=== PATIENT | male | born 1965 | race Caucasian/White ===

== ENCOUNTER 2024-08-02 14:50 | Inpatient (IN) ==
--- NOTE | 2024-08-02 15:08 | ED Triage Note ---
Date of Service August 02, 2024 Provider in Triage Author: Tila Brown History of Present Illness This patient was briefly evaluated while in triage. An abbreviated physical exam was performed. This patient is a 59-year-old Male who presents to the ED for evaluation lower extremity edema started 1 week ago sick with "chest cold" a few weeks, but getting better denies CP, SOB, hx of CHF Physical Exam GENERAL: NAD, tachycardic in 140s CARDIOVASCULAR: tachycardic RESPIRATORY: CTA ABDOMEN: BS x 4. Nontender to palpation. Initial orders for labs and / or imaging were placed and patient was placed in the waiting area until a bed is available. Please see further documentation for the full ED course.
--- NOTE | 2024-08-02 15:20 | Emergency Department Note ---
Impression & Plan Hypoxia, Anasarca, Fluid overload, Atrial flutter with rapid ventricular response, Shortness of breath ED Provider Note NAME: SAMIRA FLANNERY AGE: 59 SEX: M : 1965 ARRIVES VIA: Walk-In INFORMANT: Patient ED PROVIDER(S): Javi Kang DO CHIEF COMPLAINT: SOB HPI: Patient is a 59-year-old male who presents to the ER for shortness of breath. He notes that the symptoms initially started about 3 weeks ago with cough and congestion. He felt like the fluid was in his lungs. Over the past week he has noticed significant swelling in his legs and belly and has been more short of breath. He denies any belly pain. No nausea, vomiting, or diarrhea. No dysuria, urgency, or frequency. He denies any history of A-fib or flutter. No history of heart failure. No other exacerbating or remitting factors. ADDITIONAL HISTORY OBTAINED: Per HPI Chronic Medical/Social Conditions Affecting Care: Per HPI PAST MEDICAL HISTORY:See Below PAST SURGICAL HISTORY:See Below FAMILY HISTORY:See Below SOCIAL HISTORY:See Below HOME MEDICATIONS:See Below ALLERGIES:See Below VITALS:See Below PHYSICAL EXAMINATION: GENERAL: Sitting up in bed, alert, obese, disheveled EYE EXAM: normal conjunctiva. OROPHARYNX: no exudate, no erythema, lips, buccal mucosa, and tongue normal and mucous membranes are moist NECK: supple, no nuchal rigidity, no adenopathy, non-tender LUNGS: Clear to auscultation. Normal chest wall mechanics HEART: no murmurs, S1 normal and S2 normal ABDOMEN: abdomen soft, non-tender, normo-active bowel sounds, no masses, no rebound or guarding. BACK: Back is symmetrical on inspection and there is no deformity, no midline tenderness, no CVA tenderness. SKIN: no rashes and no bruising UPPER EXTREMITIES: upper extremities are grossly normal. LOWER EXTREMITIES: Pitting edema in the bilateral lower extremities tracking up and through the mid abdomen. Left calf is larger than right. NEURO EXAM: Normal sensorium, cranial nerves II-XII grossly intact, normal speech, no gross weakness of arms, no gross weakness of legs. MEDICAL DECISION MAKING: Patient is a 59-year-old male who presents to the ER for the above-stated complaint. Upon arrival he is found to be tachycardic with a heart rate in the 140s. He was hypoxic and was placed on 2 L nasal cannula at 87%. IV was established blood work was obtained. POC was obtained as his left calf was larger than right he was taken emergently to CT to rule out PE. CT angio chest showed no PEs. Did show pleural effusions as well as ascites. Following this patient was given IV Lopressor 5 mg and heart rate trended down to 110. Did suggest atrial flutter with RVR. Labs show no significant leukocytosis or anemia. INR unremarkable. BMP was fairly unremarkable. LFTs bilirubin were normal. Troponin was mildly elevated. TSH normal. UA clean. Patient was given IV Lasix. He was updated bedside. Discussed case with Dr. Gonzales for further evaluation management treatment. Consults/Care Managements Discussions: Per [facility] Triage Nursing notes reviewed. Limited review of prior medical records performed Vital Signs: reviewed and remarkable for hypertensive and tachycardic Differential diagnosis: Cardiac ischemia, aortic dissection, pulmonary embolism, pneumothorax, pneumonia, pericarditis, myocarditis, esophageal rupture, GERD, cholecystitis, pancreatitis, musculoskeletal, as well as other pathologies. ER treatment provided: See below Diagnostics interpreted by me include EKG and cardiac monitoring as listed below: -Cardiac Monitoring: An order was placed for continuous cardiac monitoring. The monitor shows a rate of 145 with atrial flutter rhythm. -ECG: Atrial flutter rate of [address] wave changes in the inferior and lateral leads QTc 416 EKG #2 Atrial flutter with a variable block rate of 109 Normal axis No PVCs Septal Q waves QTc 490 -Laboratory studies:Interpreted by me as stated above in MDM and shown below. Imaging studies: Xrays: As interpreted by me:none CTs show: CT angio the chest was negative for PE Procedures:none Critical Care: I have personally spent 45 minutes of critical care time in the direct management of this patient. This includes bedside care, interpretation of diagnostic studies, and testing, discussion with consultants, patient, and family members, and other required patient management activities. This 45 minutes is in excess of all separately billable procedures. Past Med/Surg History Problem List (Updated 08/02/24 @ 21:52 by Javi Kang DO) Shortness of breath (Acute) Atrial flutter with rapid ventricular response (Acute) Anasarca (Acute) Hypoxia (Acute) Atrial flutter Fluid overload (Acute) Medical History (Updated 08/02/24 @ 21:52 by Javi Kang DO) No pertinent past medical history Surgical History (Updated 05/29/23 @ 17:34 by Johnathan Law PA-C) History of hernia surgery History of surgery on arm Social History Smoking Status: Former smoker Preferred Language: Barbadian Feels Safe at Home: Yes Allergies Allergies Allergy/AdvReac Type Severity Reaction Status Date / Time No Known Allergies Allergy Unverified 09/24/15 10:25 Home Meds Home Medications Medication Instructions Recorded Confirmed No Known Home Medications 08/02/24 08/02/24 Results & Data (ED) Vital Signs Vital Signs - 24 hr 08/02/24 15:05 08/02/24 15:56 08/02/24 15:56 Temperature 36.4 C L Temperature Source Temporal Artery Scan Pulse Rate 147 H 145 H Pulse Rate [Right Finger] 144 H Pulse Rate from SpO2 Sensor Pulse Rhythm Regular Regular Pulse Rhythm [Right Finger] Regular Pulse Strength [Right Finger] Normal Respiratory Rate 20 34 H 34 H Respiratory Effort / Characteristics Non-Labored Spontaneous Non-Labored Respiratory Depth Normal Normal Respiratory Pattern Regular Regular Blood Pressure 161/137 H Blood Pressure [Right Arm] 176/129 H Blood Pressure Mean 145 Blood Pressure Mean [Right Arm] 144 Blood Pressure Position Sitting Blood Pressure Position [Right Arm] Lying Pulse Oximetry 92 89 L 89 L Oxygen Delivery Method Room Air Room Air Room Air Oxygen Flow Rate Sepsis Recent Fever Within 48 Hours No Sepsis New/Unexplained Change in Mental Status No Sepsis Action Taken by Nursing No Action Required 08/02/24 16:02 08/02/24 16:49 08/02/24 17:07 Temperature Temperature Source Pulse Rate 145 H 144 H Pulse Rate [Right Finger] 113 H Pulse Rate from SpO2 Sensor Pulse Rhythm Pulse Rhythm [Right Finger] Regular Pulse Strength [Right Finger] Normal Respiratory Rate 31 H Respiratory Effort / Characteristics Non-Labored Respiratory Depth Normal Respiratory Pattern Regular Blood Pressure 159/120 H Blood Pressure [Right Arm] 146/109 H Blood Pressure Mean Blood Pressure Mean [Right Arm] 121 Blood Pressure Position Blood Pressure Position [Right Arm] Lying Pulse Oximetry 94 Oxygen Delivery Method Nasal Cannula Oxygen Flow Rate 2 Sepsis Recent Fever Within 48 Hours Sepsis New/Unexplained Change in Mental Status Sepsis Action Taken by Nursing 08/02/24 18:45 08/02/24 18:51 08/02/24 19:00 Temperature Temperature Source Pulse Rate 144 H 144 H Pulse Rate [Right Finger] Pulse Rate from SpO2 Sensor 144 H 145 H Pulse Rhythm Pulse Rhythm [Right Finger] Pulse Strength [Right Finger] Respiratory Rate 26 H 32 H Respiratory Effort / Characteristics Non-Labored Respiratory Depth Normal Respiratory Pattern Blood Pressure Blood Pressure [Right Arm] Blood Pressure Mean Blood Pressure Mean [Right Arm] Blood Pressure Position Blood Pressure Position [Right Arm] Pulse Oximetry 94 95 Oxygen Delivery Method Oxygen Flow Rate Sepsis Recent Fever Within 48 Hours Sepsis New/Unexplained Change in Mental Status Sepsis Action Taken by Nursing 08/02/24 19:06 08/02/24 19:06 08/02/24 19:15 Temperature Temperature Source Pulse Rate 145 H 103 H Pulse Rate [Right Finger] Pulse Rate from SpO2 Sensor 140 H 103 H Pulse Rhythm Pulse Rhythm [Right Finger] Pulse Strength [Right Finger] Respiratory Rate 35 H 28 H Respiratory Effort / Characteristics Respiratory Depth Respiratory Pattern Blood Pressure 153/119 H Blood Pressure [Right Arm] Blood Pressure Mean 123 Blood Pressure Mean [Right Arm] Blood Pressure Position Blood Pressure Position [Right Arm] Pulse Oximetry 90 95 Oxygen Delivery Method Oxygen Flow Rate Sepsis Recent Fever Within 48 Hours Sepsis New/Unexplained Change in Mental Status Sepsis Action Taken by Nursing 08/02/24 19:20 08/02/24 19:44 08/02/24 20:02 Temperature Temperature Source Pulse Rate 144 H 95 H 108 H Pulse Rate [Right Finger] Pulse Rate from SpO2 Sensor Pulse Rhythm Pulse Rhythm [Right Finger] Pulse Strength [Right Finger] Respiratory Rate Respiratory Effort / Characteristics Respiratory Depth Respiratory Pattern Blood Pressure 153/119 H Blood Pressure [Right Arm] Blood Pressure Mean Blood Pressure Mean [Right Arm] Blood Pressure Position Blood Pressure Position [Right Arm] Pulse Oximetry Oxygen Delivery Method Oxygen Flow Rate Sepsis Recent Fever Within 48 Hours Sepsis New/Unexplained Change in Mental Status Sepsis Action Taken by Nursing 08/02/24 21:25 Temperature Temperature Source Pulse Rate 103 H Pulse Rate [Right Finger] Pulse Rate from SpO2 Sensor Pulse Rhythm Pulse Rhythm [Right Finger] Pulse Strength [Right Finger] Respiratory Rate 22 Respiratory Effort / Characteristics Respiratory Depth Respiratory Pattern Blood Pressure 130/100 Blood Pressure [Right Arm] Blood Pressure Mean Blood Pressure Mean [Right Arm] Blood Pressure Position Blood Pressure Position [Right Arm] Pulse Oximetry 94 Oxygen Delivery Method Nasal Cannula Oxygen Flow Rate 2 Sepsis Recent Fever Within 48 Hours Sepsis New/Unexplained Change in Mental Status Sepsis Action Taken by Nursing Laboratory Data 08/02/24 15:44 08/02/24 15:44 Lab Results 08/02/24 08/02/24 08/02/24 Range/Units 15:44 15:54 17:30 WBC 7.43 (4.8-10.8) K/ul RBC 5.25 (4.70-6.10) M/uL Hgb 15.1 (14.0-18.0) g/dl POC Hgb 16.7 (14.0-18.0) g/dl Hct 48.9 (42.0-52.0) % POC Hct 49 (42-52) % MCV 93.1 (80.0-100.0) fL MCH 28.8 (25.0-34.0) pg MCHC 30.9 L (32.0-36.0) g/dL RDW Std Deviation 53.2 H (36.4-46.3) fL RDW Coeff of Holly 15.6 H (11.5-14.5) % Plt Count 212 (130-400) K/uL MPV 11.3 (9.4-12.4) fL Immature Gran % (Auto) 0.1 % Neut % (Auto) 75.2 % Lymph % (Auto) 14.5 % [place] % (Auto) 8.6 % Eos % (Auto) 1.1 % Baso % (Auto) 0.5 % Neut # (Auto) 5.58 (1.40-6.50) K/uL Lymph # (Auto) 1.08 L (1.20-3.40) K/uL [place] # (Auto) 0.64 H (0.11-0.59) K/uL Eos # (Auto) 0.08 (0.00-0.50) K/uL Baso # (Auto) 0.04 (0.00-0.20) K/uL Immature Gran # (Auto) 0.01 (0.01-0.20) K/uL PT 12.0 (9.0-12.0) Seconds INR 1.1 (0.9-1.1) POC Sodium 139 (135-144) mmol/L Sodium 140 (136-145) mmol/L POC Potassium 4.2 (3.3-5.0) mmol/L Potassium 4.2 (3.5-5.1) mmol/L POC Chloride 97 L (101-112) mmol/L Chloride 99 (98-107) mmol/L Carbon Dioxide 36 H (21-32) mmol/L POC Total CO2 34 H (24-31) mmol/L Anion Gap 5 (3-11) POC Anion Gap 14.0 L (16-25) mmol/L POC BUN 13 (7-18) mg/dl BUN 13 (6-23) mg/dl Creatinine 0.83 (0.6-1.4) mg/dl POC Creatinine 0.9 (0.6-1.3) mg/dl Est Cr Clr Drug Dosing 137.2 ml/min eGFR 101.45 BUN/Creatinine Ratio 15.7 (10-20) Glucose 132 H (70-99(Fasting)) mg/dl POC Glucose (70-99) mg/dl POC Glucose (other) 131 H (70-99) mg/dl Calcium 9.1 (8.6-10.3) mg/dl POC Ioniz Calcium Kourtney 1.19 (1.12-1.32) mmol/l Magnesium 2.1 (1.7-2.4) mg/dl Total Bilirubin 1.0 (0.2-1.0) mg/dl AST 14 (13-39) U/L ALT 21 (7-52) U/L Alkaline Phosphatase 57 (34-104) U/L Troponin I High Sens 22.1 H 24.4 H (0-20) pg/ml B-Natriuretic Peptide 98 (0-100) pg/ml Total Protein 6.5 (6.0-8.3) gm/dl Albumin 3.9 (3.4-5.0) gm/dl Globulin 2.6 (2.5-4.0) gm/dl Albumin/Globulin Ratio 1.5 (0.9-2) Urine Color Urine Appearance (Clear) Urine pH (4.5-7.5) Ur Specific [place] (1.000-1.030) Urine Protein (Negative) Urine Glucose (UA) (Negative) Urine Ketones (Negative) Urine Blood (Negative) Urine Nitrite (Negative) Urine Bilirubin (Negative) Urine Urobilinogen (Negative) Ur Leukocyte Esterase (Negative) SARS-CoV-2 (PCR) (Negative) Influenza Type A (PCR) (Neg) Influenza Type B (PCR) (Neg) RSV (RT-PCR) (Neg) 01/21/25 01/21/25 01/21/25 Range/Units 18:35 19:07 19:44 WBC (4.8-10.8) K/ul RBC (4.70-6.10) M/uL Hgb (14.0-18.0) g/dl POC Hgb (14.0-18.0) g/dl Hct (42.0-52.0) % POC Hct (42-52) % MCV (80.0-100.0) fL MCH (25.0-34.0) pg MCHC (32.0-36.0) g/dL RDW Std Deviation (36.4-46.3) fL RDW Coeff of Holly (11.5-14.5) % Plt Count (130-400) K/uL MPV (9.4-12.4) fL Immature Gran % (Auto) % Neut % (Auto) % Lymph % (Auto) % [place] % (Auto) % Eos % (Auto) % Baso % (Auto) % Neut # (Auto) (1.40-6.50) K/uL Lymph # (Auto) (1.20-3.40) K/uL [place] # (Auto) (0.11-0.59) K/uL Eos # (Auto) (0.00-0.50) K/uL Baso # (Auto) (0.00-0.20) K/uL Immature Gran # (Auto) (0.01-0.20) K/uL PT (9.0-12.0) Seconds INR (0.9-1.1) POC Sodium (135-144) mmol/L Sodium (136-145) mmol/L POC Potassium (3.3-5.0) mmol/L Potassium (3.5-5.1) mmol/L POC Chloride (101-112) mmol/L Chloride (98-107) mmol/L Carbon Dioxide (21-32) mmol/L POC Total CO2 (24-31) mmol/L Anion Gap (3-11) POC Anion Gap (16-25) mmol/L POC BUN (7-18) mg/dl BUN (6-23) mg/dl Creatinine (0.6-1.4) mg/dl POC Creatinine (0.6-1.3) mg/dl Est Cr Clr Drug Dosing ml/min eGFR BUN/Creatinine Ratio (10-20) Glucose (70-99(Fasting)) mg/dl POC Glucose 133 H (70-99) mg/dl POC Glucose (other) (70-99) mg/dl Calcium (8.6-10.3) mg/dl POC Ioniz Calcium [place] (1.12-1.32) mmol/l Magnesium (1.7-2.4) mg/dl Total Bilirubin (0.2-1.0) mg/dl AST (13-39) U/L ALT (7-52) U/L Alkaline Phosphatase (34-104) U/L Troponin I High Sens (0-20) pg/ml B-Natriuretic Peptide (0-100) pg/ml Total Protein (6.0-8.3) gm/dl Albumin (3.4-5.0) gm/dl Globulin (2.5-4.0) gm/dl Albumin/Globulin Ratio (0.9-2) Urine Color Yellow Urine Appearance Clear (Clear) Urine pH 5.0 (4.5-7.5) Ur Specific [place] 1.010 (1.000-1.030) Urine Protein Negative (Negative) Urine Glucose (UA) Negative (Negative) Urine Ketones Negative (Negative) Urine Blood Negative (Negative) Urine Nitrite Negative (Negative) Urine Bilirubin Negative (Negative) Urine Urobilinogen Negative (Negative) Ur Leukocyte Esterase Negative (Negative) SARS-CoV-2 (PCR) NEGATIVE (Negative) Influenza Type A (PCR) Negative (Neg) Influenza Type B (PCR) Negative (Neg) RSV (RT-PCR) Negative (Neg) 08/02/24 Range/Units 21:36 WBC (4.8-10.8) K/ul RBC (4.70-6.10) M/uL Hgb (14.0-18.0) g/dl POC Hgb (14.0-18.0) g/dl Hct (42.0-52.0) % POC Hct (42-52) % MCV (80.0-100.0) fL MCH (25.0-34.0) pg MCHC (32.0-36.0) g/dL RDW Std Deviation (36.4-46.3) fL RDW Coeff of Holly (11.5-14.5) % Plt Count (130-400) K/uL MPV (9.4-12.4) fL Immature Gran % (Auto) % Neut % (Auto) % Lymph % (Auto) % [place] % (Auto) % Eos % (Auto) % Baso % (Auto) % Neut # (Auto) (1.40-6.50) K/uL Lymph # (Auto) (1.20-3.40) K/uL [place] # (Auto) (0.11-0.59) K/uL Eos # (Auto) (0.00-0.50) K/uL Baso # (Auto) (0.00-0.20) K/uL Immature Gran # (Auto) (0.01-0.20) K/uL PT (9.0-12.0) Seconds INR (0.9-1.1) POC Sodium (135-144) mmol/L Sodium (136-145) mmol/L POC Potassium (3.3-5.0) mmol/L Potassium (3.5-5.1) mmol/L POC Chloride (101-112) mmol/L Chloride (98-107) mmol/L Carbon Dioxide (21-32) mmol/L POC Total CO2 (24-31) mmol/L Anion Gap (3-11) POC Anion Gap (16-25) mmol/L POC BUN (7-18) mg/dl BUN (6-23) mg/dl Creatinine (0.6-1.4) mg/dl POC Creatinine (0.6-1.3) mg/dl Est Cr Clr Drug Dosing ml/min eGFR BUN/Creatinine Ratio (10-20) Glucose (70-99(Fasting)) mg/dl POC Glucose 146 H (70-99) mg/dl POC Glucose (other) (70-99) mg/dl Calcium (8.6-10.3) mg/dl POC Ioniz Calcium [place] (1.12-1.32) mmol/l Magnesium (1.7-2.4) mg/dl Total Bilirubin (0.2-1.0) mg/dl AST (13-39) U/L ALT (7-52) U/L Alkaline Phosphatase (34-104) U/L Troponin I High Sens (0-20) pg/ml B-Natriuretic Peptide (0-100) pg/ml Total Protein (6.0-8.3) gm/dl Albumin (3.4-5.0) gm/dl Globulin (2.5-4.0) gm/dl Albumin/Globulin Ratio (0.9-2) Urine Color Urine Appearance (Clear) Urine pH (4.5-7.5) Ur Specific [place] (1.000-1.030) Urine Protein (Negative) Urine Glucose (UA) (Negative) Urine Ketones (Negative) Urine Blood (Negative) Urine Nitrite (Negative) Urine Bilirubin (Negative) Urine Urobilinogen (Negative) Ur Leukocyte Esterase (Negative) SARS-CoV-2 (PCR) (Negative) Influenza Type A (PCR) (Neg) Influenza Type B (PCR) (Neg) RSV (RT-PCR) (Neg) Administered Medications Insulin Aspart (Insulin Aspart Per Unit Charge) 0 units SC ACHS VERÓNICA Stop: 09/01/24 20:59 Last Admin: 08/02/24 20:35 Dose: Not Given Documented By: ADAM Metoprolol Tartrate (Metoprolol Tartrate 25 Mg Tab) 25 mg PO BID [facility] Stop: 09/01/24 20:59 Last Admin: 08/02/24 20:31 Dose: 25 mg Documented By: ADAM Metoprolol Tartrate (Metoprolol Tartrate 1 Mg/Ml Vial) 5 mg IV Q5M PRN PRN Reason: Tachycardia Last Admin: 08/02/24 19:20 Dose: 5 mg Documented By: ADAM Discontinued Medications Furosemide (Furosemide 40 Mg/4 Ml Vial) 40 mg IV NOW STA Stop: 08/02/24 17:37 Last Admin: 08/02/24 17:41 Dose: 40 mg Documented By: DRAGAN Ioversol (Optiray 320 125ml) 115 ml IV ONCE ONE Stop: 08/02/24 16:16 Last Admin: 08/02/24 16:15 Dose: 115 ml Documented By: ROCIO Metoprolol Tartrate (Metoprolol Tartrate 1 Mg/Ml Vial) 5 mg IV NOW STA Stop: 08/02/24 16:44 Last Admin: 08/02/24 16:49 Dose: 5 mg Documented By: DRAGAN Imaging Data Radiologist's Impression: Chest CTA 08/02/24 15:31 CT pulmonary angiogram with IV contrast History: Shortness of breath COMPARISON: None TECHNIQUE: CT angiography of the chest was performed without IV contrast followed by IV contrast, including 3D post processing CTA image reconstruction. Dose reduction techniques were achieved by using automatic exposure control and/or adjustment of mA and/or kV according to patient size and/or use of iterative reconstruction technique. FINDINGS: Diagnostic quality: Adequate There is no evidence for pulmonary embolism. The heart is mildly enlarged. Moderate coronary calcifciations. There is no pericardial effusion. There are no abnormally enlarged hilar or mediastinal lymph nodes. The central tracheobronchial tree is clear. There is mild bronchial wall thickening diffusely, which may be due to bronchitis or pulmonary edema. Lingular atelectasis is seen. Small right pleural effusion. 4 mm subpleural pulmonary nodule in the right lower lobe axial image 46, likely infectious/inflammatory. Limited visualized upper abdomen. Ascites. No destructive osseous changes are seen. IMPRESSION: No evidence for pulmonary embolism. Small right pleural effusion. Ascites seen in the upper abdomen. Mild diffuse bronchial thickening, which may be due to bronchitis, or pulmonary edema. Electronically signed by Nader Quiñones 08-02-2024 4:39 PM Discharge Plan Visit Data Chief Complaint: Swelling/Edema to Extremity Stated Complaint: EDEMA IN LEGS/MOSTLY LT, FLUID OUTSIDE LUNG ED Provider: Javi Kang Discharge Problem: Hypoxia, Anasarca, Fluid overload, Atrial flutter with rapid ventricular response, Shortness of breath Patient Disposition: Admitted As Inpatient Discharge Instructions Interventions: ED Discharge Assessment Last Done: 08/02/24 21:25 Forms Stand Alone Forms: [employer] Prescriptions Prescriptions: No Action No Known Home Medications Referrals Referrals: Baudilio Gomes MD [Hospitalist] - Discharge Problem: Fluid overload Qualifiers: Hypervolemia type: unspecified Qualified Code(s): E87.70 - Fluid overload, unspecified
[2024-08-02 16:02] LABS: Basophils # (auto) 0.04 K/uL (0.00-0.20); Basophils % (auto) 0.5 %; Eosinophils # (auto) 0.08 K/uL (0.00-0.50); Eosinophils % (auto) 1.1 %; Hematocrit (blood only) 48.9 % (42.0-52.0); Hemoglobin 15.1 g/dl (14.0-18.0); Immature Granulocytes # (auto) 0.01 K/uL (0.01-0.20); Immature Granulocytes % (auto) 0.1 %; Lymphocytes # (auto) 1.08 K/uL (1.20-3.40); Lymphocytes % (auto) 14.5 %; Mean Corpuscular Hemoglobin 28.8 pg (25.0-34.0); Mean Corpuscular Hgb Conc 30.9 g/dL (32.0-36.0); Mean Corpuscular Volume 93.1 fL (80.0-100.0); Mean Platelet Volume 11.3 fL (9.4-12.4); Monocytes # (auto) 0.64 K/uL (0.11-0.59); Monocytes % (auto) 8.6 %; Neutrophils # (auto) 5.58 K/uL (1.40-6.50); Neutrophils % (auto) 75.2 %; Platelet Count 212 K/uL (130-400); RDW Coefficient of Variation 15.6 % (11.5-14.5); RDW Standard Deviation 53.2 fL (36.4-46.3); Red Blood Count 5.25 M/uL (4.70-6.10); White Blood Count 7.43 K/ul (4.8-10.8)
[2024-08-02 16:06] LABS: iSTAT Creatinine 0.9 mg/dl (0.6-1.3); iSTAT Hemoglobin 16.7 g/dl (14.0-18.0); iSTAT Ionized Calcium 1.19 mmol/l (1.12-1.32); iSTAT Potassium 4.2 mmol/L (3.3-5.0)
[2024-08-02] MEDS: OPTIRAY 320 125ml IV ONE (16:15)
[2024-08-02 16:24] LABS: Albumin Globulin Ratio 1.5 (0.9-2); Albumin Level 3.9 gm/dl (3.4-5.0); BUN Creatinine Ratio 15.7 (10-20); Calcium 9.1 mg/dl (8.6-10.3); Creatinine Clr Calc Pharmacy 137.2 ml/min; Globulin 2.6 gm/dl (2.5-4.0); Magnesium 2.1 mg/dl (1.7-2.4); Potassium 4.2 mmol/L (3.5-5.1); Total Protein 6.5 gm/dl (6.0-8.3)
[2024-08-02 16:28] LABS: Troponin I High Sensitivity 22.1 pg/ml (0-20)
[2024-08-02 16:29] LABS: INR 1.1 (0.9-1.1)
--- NOTE | 2024-08-02 16:39 | CT Scan Report ---
CT pulmonary angiogram with IV contrast History: Shortness of breath COMPARISON: None TECHNIQUE: CT angiography of the chest was performed without IV contrast followed by IV contrast, including 3D post processing CTA image reconstruction. Dose reduction techniques were achieved by using automatic exposure control and/or adjustment of mA and/or kV according to patient size and/or use of iterative reconstruction technique. FINDINGS: Diagnostic quality: Adequate There is no evidence for pulmonary embolism. The heart is mildly enlarged. Moderate coronary calcifciations. There is no pericardial effusion. There are no abnormally enlarged hilar or mediastinal lymph nodes. The central tracheobronchial tree is clear. There is mild bronchial wall thickening diffusely, which may be due to bronchitis or pulmonary edema. Lingular atelectasis is seen. Small right pleural effusion. 4 mm subpleural pulmonary nodule in the right lower lobe axial image 46, likely infectious/inflammatory. Limited visualized upper abdomen. Ascites. No destructive osseous changes are seen. IMPRESSION: No evidence for pulmonary embolism. Small right pleural effusion. Ascites seen in the upper abdomen. Mild diffuse bronchial thickening, which may be due to bronchitis, or pulmonary edema. Electronically signed by Nader Quiñones 08-02-2024 4:39 PM
[2024-08-02] MEDS: METOPROLOL TARTRATE 1 MG/ML VIAL IV STA (16:49)
--- NOTE | 2024-08-02 16:57 | Electrocardiogram Report ---
Test Reason : Blood Pressure : */* mmHG Vent. Rate : 145 BPM Atrial Rate : 145 BPM P-R Int : 120 ms QRS Dur : 108 ms QT Int : 268 ms P-R-T Axes : 77 -49 43 degrees QTcB Int : 416 ms Atrial flutter Left axis deviation Low voltage QRS Incomplete right bundle branch block Cannot rule out Anteroseptal infarct , age undetermined Abnormal ECG When compared with ECG of 24-Sep-2015 11:09, Vent. rate has increased by 60 bpm QRS axis Shifted left Minimal criteria for Anteroseptal infarct are now Present ST elevation now present in Inferior leads Confirmed by Nader Kevin ([id number]) on 08/02/2024 4:56:42 PM Referred By: Confirmed By: Nader Kevin
[2024-08-02] MEDS: FUROSEMIDE 40 MG/4 ML VIAL IV STA (17:41)
--- NOTE | 2024-08-02 18:06 | History & Physical Report ---
Date of Service August 02, 2024 Assessment & Plan (1) Fluid overload: Plan: Acute hypoxic respiratory failure, suspect new CHF no leukocytosis 2 L oxygen requirement, A-fib with RVR on admission On CTA-Chest patient has a right pleural effusion and suspected pulmonary edema BNP is not markedly elevated Symptoms were preceded by a viral URI with cough, congestion, fever, chills all of which have resolved.? Viral illness precipitating atrial flutter and subsequent rate related failure Patient has predominant lower extremity edema/abdominal edema with minimal pulm edema and normal BNP. No risk factors for cirrhosis or obstructive ascites/lower extremity edema; however if presentation is not consistent with CHF and he does not improve reasonable to follow-up with abdominal CT. This is deferred on admission as patient has already received contrast, he has no abdominal tenderness, and no transaminitis. A1c added, lipid panel added. Coags normal Did have preceding viral URI which has mostly resolved Atrial flutter Initial EKG with atrial flutter, rate 145, incomplete right bundle branch block Repeat EKG? Consistent P waves, sinus tachycardia versus flutter Troponin 21.1, repeat 24.4, stable Patient is without chest pain Metoprolol 5 mg IV given Continue metoprolol 5 mg IV every 4 hours as needed as needed for acute rate control. Continue diuresis. Will need PCP enrollment for follow-up, case management consulted to help facilitate both insurance concerns and follow-up appointments DVT prophylaxis: Lovenox Diet: Heart healthy, fluid restricted Disposition: PCU CODE STATUS: Full code (2) Atrial flutter: History of Present Illness Primary Care Provider: NO PCP Stephon is a 59-year-old male with no prior medical history presents with leg swelling, abdominal swelling, shortness of breath. "Bill" reports 3 weeks ago he had bad chest congestion. Took Phoebe Coffey from the pharmacy and felt a lot better except then had some constipation after. "Normally regular as rain." Had had increased constipation which was just started to improve but then started to develop edema. Leg and abdominal edema started to develop ~3 weeks ago. Has had some swelling in his RIGHT leg in the past. Swelling in the legs hasn't increased that much, tends to be worse in the evening. no pain in the calves. Shortness of breath started 3 weeks ago. Improved after initial chest congestion, but then staying the same overall in the last 2 weeks. Edema seems pretty stable over that time 'but stomach is so hard even ahrd to bend.' Abdomen is much more swollen than normal. No abdominal pain. No surface or deep pain. +Fevers and chills initially 'shaking' and cold at night, but none in the last week and a half. No sweats/chills in last 10 days No cough last 2 weeks. Has a slightly dry cough chronically. First week coughed up clear sputum no color. No sputum production last 10 days. No dysuria Last BM was this morning, brown no blood or melena. +orthopnea last 3 weeks Works construction and goes up stairs, no chest pain or ches tpressure. Short of breath last 3 weeks No primary care doctor currently Medical History: Reviewed Medications: Reviewed. Surgical History: Reviewed Family history: Reviewed. No FHX CO, FHX of DM diet controlled in father. +stroke in his father. Allergies: Reviewed. NKDA. Social History: No ETOH. Rare snuff use, not daily/regularly. Code Status: Full Code Allergies Allergy/AdvReac Type Severity Reaction Status Date / Time No Known Allergies Allergy Unverified 09/24/15 10:25 Home Medications Medication Instructions Recorded Confirmed Type No Known Home Medications 08/02/24 08/02/24 History Past Med/Surg History Problem List (Updated 08/02/24 @ 18:41 by Saurabh Shen MD) Atrial flutter Fluid overload Medical History (Updated 08/02/24 @ 18:41 by Saurabh Shen MD) No pertinent past medical history Surgical History (Updated 05/29/23 @ 17:34 by Johnathan Law PA-C) History of hernia surgery History of surgery on arm Social History Smoking Status: Former smoker Preferred Language: Salvadorean Feels Safe at Home: Yes Physical Exam Physical Exam: General: A&Ox3. NAD. Cooperative. HEENT: Atraumatic, normocephalic. Pulm: Distant, diminished. No wheezes. Basilar crackles are present. Symmetrical chest rise. AfterPill on 2 L nasal cannula Cardiac: Regular, tachycardic, -mrg. Radial pulses intact and symmetrical. Abdominal: Distended with some fluid wave + subcu edema. Nontender to light and deep palpation Extremities: Pitting edema through the lower extremities and abdomen. Results & Data Results & Data Vital Signs (Past 12 Hours) Vital Signs Temp Pulse Pulse Resp BP BP Pulse Ox 08/02/24 17:07 113 H 31 H 146/109 H 94 08/02/24 16:49 144 H 159/120 H 08/02/24 16:02 145 H 08/02/24 15:56 145 H 34 H 89 L 08/02/24 15:56 144 H 34 H 176/129 H 89 L 08/02/24 15:05 36.4 C L 147 H 20 161/137 H 92 O2 Del Method O2 Flow Rate 08/02/24 17:07 Nasal Cannula 2 08/02/24 16:49 08/02/24 16:02 08/02/24 15:56 Room Air 08/02/24 15:56 Room Air 08/02/24 15:05 Room Air PG Care Time/CCT Total # of Minutes Spent Total Time Spent with Patient: Total time spent is greater than 50% in coordination of care (as documented) at patient's floor/unit and/or counseling patient: Coding Level of Care Code 30455 INT INP/OBS CARE 3/75MIN Diagnoses Fluid overload E87.70 Atrial flutter I48.92
[2024-08-02] MEDS ORDERED: GLUCAGON FOR INJ 1 MG VIAL SQ PRN (18:47)
[2024-08-02] MEDS ORDERED: CARBOHYDRATES FOR HYPOGLYCEMIA PO PRN (18:47)
[2024-08-02] MEDS ORDERED: GLUCOSE 10 TAB/TUBE PO PRN (18:47)
[2024-08-02] MEDS ORDERED: GLUCOSE 40% GEL 15 GM TUBE PO PRN (18:47)
[2024-08-02] MEDS ORDERED: DEXTROSE 50% 50 ML SYRINGE IV PRN (18:47)
[2024-08-02 19:17] LABS: Appearance Urine Clear (Clear); Bilirubin Urine Negative (Negative); Blood Urine Negative (Negative); Color Urine Yellow; Glucose Urine UA Negative (Negative); Ketones Urine Negative (Negative); Leukocyte Esterase Urine Negative (Negative); Nitrite Urine Negative (Negative); Protein Urine Negative (Negative); Urobilinogen Urine Negative (Negative)
[2024-08-02] MEDS: METOPROLOL TARTRATE 1 MG/ML VIAL IV PRN (19:20)
[2024-08-02 19:22] LABS: Influenza A virus by PCR Negative (Neg); Influenza B virus by PCR Negative (Neg); RSV by PCR Negative (Neg); SARS CoV2 RNA(COVID-19) Ceph NEGATIVE (Negative)
[2024-08-02] MEDS: METOPROLOL TARTRATE 25 MG TAB PO SCH (20:31)
[2024-08-02] MEDS: INSULIN ASPART PER UNIT CHARGE SC SCH (20:35)
[2024-08-02 22:46] LABS: Thyroid Stimulating Hormone 2.914 uIu/ml (0.300-4.500)
[2024-08-02] MEDS ORDERED: ACETAMINOPHEN 325 MG TAB PO PRN (23:13)
[2024-08-02] MEDS ORDERED: ONDANSETRON INJ 2 MG/ML 2 ML VIAL IV PRN (23:13)
[2024-08-03] MEDS: METOPROLOL TARTRATE 1 MG/ML VIAL IV PRN (03:42)
[2024-08-03 04:09] LABS: Basophils # (auto) 0.03 K/uL (0.00-0.20); Basophils % (auto) 0.4 %; Eosinophils # (auto) 0.12 K/uL (0.00-0.50); Eosinophils % (auto) 1.5 %; Hematocrit (blood only) 48.7 % (42.0-52.0); Hemoglobin 14.9 g/dl (14.0-18.0); Immature Granulocytes # (auto) 0.02 K/uL (0.01-0.20); Immature Granulocytes % (auto) 0.3 %; Lymphocytes # (auto) 1.26 K/uL (1.20-3.40); Lymphocytes % (auto) 16.1 %; Mean Corpuscular Hemoglobin 28.4 pg (25.0-34.0); Mean Corpuscular Hgb Conc 30.6 g/dL (32.0-36.0); Mean Corpuscular Volume 92.9 fL (80.0-100.0); Mean Platelet Volume 10.9 fL (9.4-12.4); Monocytes # (auto) 0.76 K/uL (0.11-0.59); Monocytes % (auto) 9.7 %; Neutrophils # (auto) 5.66 K/uL (1.40-6.50); Platelet Count 195 K/uL (130-400); RDW Coefficient of Variation 15.7 % (11.5-14.5); RDW Standard Deviation 53.1 fL (36.4-46.3); Red Blood Count 5.24 M/uL (4.70-6.10); White Blood Count 7.85 K/ul (4.8-10.8)
[2024-08-03 04:22] LABS: BUN Creatinine Ratio 16.9 (10-20); Calcium 8.9 mg/dl (8.6-10.3); Chol HDL Ratio 4.2 (0-5); Creatinine Clr Calc Pharmacy 159.9 ml/min; Magnesium 2.1 mg/dl (1.7-2.4); Potassium 4.4 mmol/L (3.5-5.1)
--- NOTE | 2024-08-03 07:09 | Hospitalist Progress Note ---
Date of Service August 03, 2024 Assessment & Plan (1) Atrial flutter with rapid ventricular response: (2) Fluid overload: (3) Diabetes: Plan #Atrial flutter/Atrial Fibrillation with RVR #Abdominal and Peripheral Edema - Cardiology onboard: Echo - EF 40-45% and right sided systolic function severely reduced suggests cor pulmonale secondary to untreated MARINO. Will need outpatient sleep study. Cardioversion planned, heparin drip started (to be transitioned to DOAC at time of discharge) - CT abdomen/pelvis: Early cirrhosis vs. mild fatty live; small ascites - Troponin peaked at mid-20s; discontinue serial monitoring Furosemide 40 mg IV BID Metoprolol tartrate 25 mg PO BID - adjust based on tele monitor rates/need for PRN IV metoprolol BMP and CBC with differential QAM Discussed anticoagulation and stroke risk; hesitant towards anticoagulation due to father's negative experience with Warfarin #Diabetes - HbA1C 7.1%. - Blood glucose checks ACHS, insulin sliding scale - On discharge, consider metformin, ACEi/ARBi, statin +/- GLP-1 agonist, and lifestyle management DVT prophylaxis: Heparin Diet: Heart healthy, fluid restricted Disposition: PCU CODE STATUS: Full code Admission and Anticipated Discharge Date Admission Date: August 02, 2024 Supervising Physician Co-Signing Physician Notes Attending attestation Pt seen and examined in concert with Dr. Conteh. In agreement with the documented findings as noted in the resident documentation with any exceptions or additions as noted here. Already improved shortness of breath and fatigue since presentation though still considerable. On examination, S1/S2 nl RRR no MCG. decreased BS bilateral bases with visible accessory muscle use while speaking off O2. Abd NT/ND BS+ve. 2+ pitting edema to the knee bilaterally Atrial flutter/Atrial fibrillation with RVR with subsequent fluid overload - cardiology consult - continue diuresis with furosemide. Metoprolol for rate control and uptitrate if rates persistently ~100. Trend creatinine, potassium. Extensive counseling re: importance of treatment and medication adherence ongoing, tatiana w/ elevated CVA risk. Will continue. New diagnosis of DMII - ISS. Counseling ongoing for lifestyle management and supportive care. Would recommend metformin on discharge Suspected MARINO - outpatient sleep study, monitor for nocturnal hypoxia and tachyarrhythmia Else see resident documentation as noted. Subjective Bill states that he is doing about the same as yesterday. He is still short of breath on exertion and while lying supine. He denies using the nasal canula this morning. He has not had a bowel movement since being here which he mentioned is odd for him; however, he had a bowel movement yesterday. He states that his abdominal distention has been quite bothersome, but he is able to eat/have an appetite. Otherwise, he has no further questions, concerns, or updates. Review of Systems Review of Systems: Per HPI Physical Exam Physical Exam: Constitutional: Lying on his side in bed; Appears in mid discomfort Respiratory: No nasal cannula in place; Lung sounds are distant due to body habitus, otherwise clear to auscultation bilaterally in the upper and lower lung rust; Conversational without shortness of breath; Respiratory effort and rate appropriate for situation; No accessory muscle use Cardiovascular: Heart sounds are distant; S1 and S2 appreciated; Tachycardic Extremities: BLE pitting edema Results & Data Results & Data Vital Signs (Past 12 Hours) Vital Signs Temp Pulse Pulse Resp BP BP BP 08/03/24 03:57 109 H 08/03/24 03:42 140 H 08/03/24 03:12 36.8 C 107 H 19 158/99 H 08/03/24 00:00 08/02/24 23:13 08/02/24 22:00 08/02/24 21:40 36.6 C 103 H 20 125/84 08/02/24 21:25 103 H 22 130/100 08/02/24 20:02 108 H 08/02/24 19:44 95 H 08/02/24 19:20 144 H 153/119 H 08/02/24 19:15 103 H 28 H Pulse Ox Pulse Ox O2 Del Method O2 Del Method O2 Flow Rate O2 Flow Rate 08/03/24 03:57 08/03/24 03:42 08/03/24 03:12 96 Nasal Cannula 2 08/03/24 00:00 93 Nasal Cannula 2 08/02/24 23:13 95 Nasal Cannula 2 08/02/24 22:00 Nasal Cannula 2 08/02/24 21:40 96 Nasal Cannula 2 08/02/24 21:25 94 Nasal Cannula 2 08/02/24 20:02 08/02/24 19:44 08/02/24 19:20 08/02/24 19:15 95 Resident Activity Tracking Resident Involvement: Resident Care Provided Care Provided: Adult Hospital Medicine (2) Fluid overload Hypervolemia type: unspecified Qualified Code(s): E87.70 - Fluid overload, unspecified
[2024-08-03 07:19] LABS: Estimated Average Glucose 157 mg/dl; Hemoglobin A1C 7.1 % (4.5-5.6)
[2024-08-03] MEDS: FUROSEMIDE 40 MG/4 ML VIAL IV SCH (08:34)
[2024-08-03] MEDS: ENOXAPARIN INJ 40 MG/0.4 ML SYR SQ SCH (08:35)
[2024-08-03] MEDS: LORazepam 0.5 MG TAB PO STA (10:19)
--- NOTE | 2024-08-03 10:31 | Cardiology Consultation ---
Date of Consultation August 03, 2024 Assessment & Plan (1) Atrial flutter with rapid ventricular response: (2) Right ventricular failure: Plan 1. Atrial flutter: Most likely the precipitant for his decompensation. Likely related to his morbid obesity and untreated sleep apnea. He has some evidence of right ventricular failure and I suspect he has high pulmonary pressures although these are not estimated on his echocardiogram. Efforts should be directed at returning him to a sinus rhythm. I would advocate a MAG cardioversion once he has had some diuresis. I will start him on a heparin infusion now and we will plan on transitioning him to an oral anticoagulant prio r to discharge. He did mention some financial concerns with regards to expensive medications. However, I think the ultimate plan would be ablation for his atrial flutter which would obviate the need for long-term anticoagulation. 2. Cor pulmonale: I suspect he has high pulmonary pressures related to his morbid obesity and likely untreated sleep apnea. He does have some evidence of right ventricular failure on echocardiography, ascites and lower extremity edema. Lung examination relatively benign given his degree of swelling. No pulmonary embolus on his CTA. He should be evaluated with a sleep study. Obviously he needs to lose weight. Hopefully an element of the RV dysfunction is related to high ventricular rates for several weeks and will improve with a return to sinus rhythm and controlled ventricular rates. 3. Cardiomyopathy: An element of left and right sided failure. Likely related to untreated sleep apnea and tachycardia induced cardiomyopathy. We will return him to sinus rhythm and a normal heart rate. Will start him on typical medical therapy for cardiomyopathy. I suspect his LV dysfunction will resolve with some time and return to sinus rhythm. Unclear chronicity of RV failure. More likely related to the above etiologies. 4. Acute decompensated heart failure: Some element of left ventricular dysfunction. I think a lot of his edema and ascites is more related to RV dysfunction. As noted above we will fix his flutter and rate. Will continue diuresis at this point. Monitor electrolytes and renal function closely. History of Present Illness Reason for Consultation: Edema, atrial flutter Requesting Physician: Ac Attending Physician: Nader Zimmerman MD History of Present Illness The patient is a 59-year-old gentleman without a known history of cardiac disease who presented for symptoms of increased edema. The patient states that for several weeks he has noticed some gradually increasing abdominal distention and lower extremity edema. He believes he had an upper respiratory infection approximately 3 weeks ago this involved a lot of coughing and some difficulty breathing. However, he took some [id number] Phoebe-Kirk and this improved his symptoms. However, he subsequently developed significant constipation. It was around this time that he also began to notice some worsening abdominal distention. He had a loss of appetite. He was having difficulty performing his usual activities due to fatigue, dyspnea and difficulty bending over due to abdominal distention. He did not report any se nse of palpitations. He is not aware of an elevated heart rate. He did not experience chest pain at any time. He generally sleeps on his side but perhaps had more difficulty sleeping recently. No dizziness or lightheadedness. No presyncope or syncope. 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 This job has a physical component which she can generally perform without limitation. He has not worked regularly in the past 3 weeks due to his symptoms. Allergies Allergy/AdvReac Type Severity Reaction Status Date / Time No Known Allergies Allergy Unverified 09/24/15 10:25 Home Medications Medication Instructions Recorded Confirmed Type No Known Home Medications 08/02/24 08/02/24 History Patient History Medical History (Updated 08/03/24 @ 10:47 by Nader Kevin MD) No pertinent past medical history Surgical History (Updated 05/29/23 @ 17:34 by Johnathan Law PA-C) History of hernia surgery History of surgery on arm Social History Smoking Status: Unknown if ever smoked Second Hand Exposure: Yes; Hx Alcohol Use: No Hx Substance Use: Yes Preferred Language: Swedish Communication Ability: Effective Building Drafting Officer Required: No Beliefs That Will Affect Care: None Current Living Situation: Significant Other Other Information That Helps Us Care for You: No Feels Safe at Home: Yes Safety Concerns: Feels Safe At This Time Assistive Devices: None Review of Systems Review of Systems: Per HPI. History of snoring and chronic fatigue. Physical Exam Physical Exam: The patient is alert and oriented. Mood and affect appeared normal. He answered all questions appropriately. Obese HEENT: Pupils are equal and reactive to light and accommodation. Extraocular movements are intact. The sclerae are anicteric. Neuro: Cranial nerves intact Lungs: Clear to auscultation bilaterally. He has good air movement without use of accessory muscles. No rales wheezes or rhonchi. Cardiac: Heart demonstrates a rapid and irregular rhythm. Normal S1 and S2. No murmurs on examination. Pulses: The patient has palpable radial pulses bilaterally that are equal in intensity Abdomen: Markedly obese and distended. Nontender to palpation. Extremities: There was no evidence of hypoperfusion. There is no cyanosis or clubbing. Moderate lower extremity edema Skin: I did not appreciate any rashes on examination today. Results & Data Vital Signs (Past 12 Hours) Vital Signs Temp Pulse Pulse Resp BP BP BP 08/03/24 09:52 142 H 133/104 H 08/03/24 07:22 36.8 C 102 H 20 122/79 08/03/24 07:00 105 H 08/03/24 03:57 109 H 08/03/24 03:42 140 H 08/03/24 03:12 36.8 C 107 H 19 158/99 H 08/03/24 00:00 08/02/24 23:13 Pulse Ox Pulse Ox O2 Del Method O2 Del Method O2 Flow Rate O2 Flow Rate 08/03/24 09:52 08/03/24 07:22 94 Nasal Cannula 2.0 08/03/24 07:00 08/03/24 03:57 08/03/24 03:42 08/03/24 03:12 96 Nasal Cannula 2 08/03/24 00:00 93 Nasal Cannula 2 08/02/24 23:13 95 Nasal Cannula 2 Laboratory Results Abnormal Lab Results 08/02/24 08/02/24 08/02/24 15:44 15:54 17:30 WBC 7.43 RBC 5.25 Hgb 15.1 POC Hgb 16.7 Hct 48.9 POC Hct 49 MCV 93.1 MCH 28.8 MCHC 30.9 L RDW Std Deviation 53.2 H RDW Coeff of Holly 15.6 H Plt Count 212 MPV 11.3 Immature Gran % (Auto) 0.1 Neut % (Auto) 75.2 Lymph % (Auto) 14.5 Wagoner % (Auto) 8.6 Eos % (Auto) 1.1 Baso % (Auto) 0.5 Neut # (Auto) 5.58 Lymph # (Auto) 1.08 L Wagoner # (Auto) 0.64 H Eos # (Auto) 0.08 Baso # (Auto) 0.04 Immature Gran # (Auto) 0.01 PT 12.0 INR 1.1 POC Sodium 139 Sodium 140 POC Potassium 4.2 Potassium 4.2 POC Chloride 97 L Chloride 99 Carbon Dioxide 36 H POC Total CO2 34 H Anion Gap 5 POC Anion Gap 14.0 L POC BUN 13 BUN 13 Creatinine 0.83 POC Creatinine 0.9 Est Cr Clr Drug Dosing 137.2 eGFR 101.45 BUN/Creatinine Ratio 15.7 Glucose 132 H POC Glucose POC Glucose (other) 131 H Estimat Average Glucose Hemoglobin A1c Calcium 9.1 POC Ioniz Calcium Kourtney 1.19 Magnesium 2.1 Total Bilirubin 1.0 AST 14 ALT 21 Alkaline Phosphatase 57 Troponin I High Sens 22.1 H 24.4 H B-Natriuretic Peptide 98 Total Protein 6.5 Albumin 3.9 Globulin 2.6 Albumin/Globulin Ratio 1.5 Triglycerides Cholesterol LDL Cholesterol, Calc VLDL Cholesterol, Calc HDL Cholesterol Cholesterol/HDL Ratio TSH 2.914 Urine Color Urine Appearance Urine pH Ur Specific Cornelius Urine Protein Urine Glucose (UA) Urine Ketones Urine Blood Urine Nitrite Urine Bilirubin Urine Urobilinogen Ur Leukocyte Esterase SARS-CoV-2 (PCR) Influenza Type A (PCR) Influenza Type B (PCR) RSV (RT-PCR) 08/02/24 08/02/24 08/02/24 18:35 19:07 19:44 WBC RBC Hgb POC Hgb Hct POC Hct MCV MCH MCHC RDW Std Deviation RDW Coeff of Holly Plt Count MPV Immature Gran % (Auto) Neut % (Auto) Lymph % (Auto) Wagoner % (Auto) Eos % (Auto) Baso % (Auto) Neut # (Auto) Lymph # (Auto) Wagoner # (Auto) Eos # (Auto) Baso # (Auto) Immature Gran # (Auto) PT INR POC Sodium Sodium POC Potassium Potassium POC Chloride Chloride Carbon Dioxide POC Total CO2 Anion Gap POC Anion Gap POC BUN BUN Creatinine POC Creatinine Est Cr Clr Drug Dosing eGFR BUN/Creatinine Ratio Glucose POC Glucose 133 H POC Glucose (other) Estimat Average Glucose Hemoglobin A1c Calcium POC Ioniz Calcium Kourtney Magnesium Total Bilirubin AST ALT Alkaline Phosphatase Troponin I High Sens B-Natriuretic Peptide Total Protein Albumin Globulin Albumin/Globulin Ratio Triglycerides Cholesterol LDL Cholesterol, Calc VLDL Cholesterol, Calc HDL Cholesterol Cholesterol/HDL Ratio TSH Urine Color Yellow Urine Appearance Clear Urine pH 5.0 Ur Specific Cornelius 1.010 Urine Protein Negative Urine Glucose (UA) Negative Urine Ketones Negative Urine Blood Negative Urine Nitrite Negative Urine Bilirubin Negative Urine Urobilinogen Negative Ur Leukocyte Esterase Negative SARS-CoV-2 (PCR) NEGATIVE Influenza Type A (PCR) Negative Influenza Type B (PCR) Negative RSV (RT-PCR) Negative 08/02/24 08/03/24 08/03/24 21:36 03:48 07:17 WBC 7.85 RBC 5.24 Hgb 14.9 POC Hgb Hct 48.7 POC Hct MCV 92.9 MCH 28.4 MCHC 30.6 L RDW Std Deviation 53.1 H RDW Coeff of Holly 15.7 H Plt Count 195 MPV 10.9 Immature Gran % (Auto) 0.3 Neut % (Auto) 72.0 Lymph % (Auto) 16.1 Wagoner % (Auto) 9.7 Eos % (Auto) 1.5 Baso % (Auto) 0.4 Neut # (Auto) 5.66 Lymph # (Auto) 1.26 Wagoner # (Auto) 0.76 H Eos # (Auto) 0.12 Baso # (Auto) 0.03 Immature Gran # (Auto) 0.02 PT INR POC Sodium Sodium 139 POC Potassium Potassium 4.4 POC Chloride Chloride 99 Carbon Dioxide 37 H POC Total CO2 Anion Gap 3 POC Anion Gap POC BUN BUN 14 Creatinine 0.83 POC Creatinine Est Cr Clr Drug Dosing 159.9 eGFR 101.45 BUN/Creatinine Ratio 16.9 Glucose 157 H POC Glucose 146 H 135 H POC Glucose (other) Estimat Average Glucose 157 Hemoglobin A1c 7.1 H Calcium 8.9 POC Ioniz Calcium Kourtney Magnesium 2.1 Total Bilirubin AST ALT Alkaline Phosphatase Troponin I High Sens 26.0 H B-Natriuretic Peptide Total Protein Albumin Globulin Albumin/Globulin Ratio Triglycerides 81 Cholesterol 130 LDL Cholesterol, Calc 83 VLDL Cholesterol, Calc 16 HDL Cholesterol 31 Cholesterol/HDL Ratio 4.2 TSH Urine Color Urine Appearance Urine pH Ur Specific Cornelius Urine Protein Urine Glucose (UA) Urine Ketones Urine Blood Urine Nitrite Urine Bilirubin Urine Urobilinogen Ur Leukocyte Esterase SARS-CoV-2 (PCR) Influenza Type A (PCR) Influenza Type B (PCR) RSV (RT-PCR) Diagnostic Findings Chest CTA did not demonstrate any pulmonary embolus. Small right pleural effusion and abdominal ascites. Possible pulmonary edema. Echocardiogram 08/03/2024: Image quality was limited due to the patient's body habitus. However, there does appear to be some mildly reduced LV systolic function with ejection fraction around 40 to 45%. The right ventricle appears dilated and poorly mobile. Limited valvular evaluation and no imaging of the IVC. ECG Additional Comments: EKG obtained the time of admission revealed atrial flutter and rapid ventricular rate. PG Care Time/CCT Total # of Minutes Spent Total Time Spent with Patient: Total time spent is greater than 50% in coordination of care (as documented) at patient's floor/unit and/or counseling patient: Coding Level of Care Code 21464 IN/OBS CONSULT LVL 4,60M Diagnoses Atrial flutter with rapid ventricular response I48.92 Right ventricular failure I50.810
--- NOTE | 2024-08-03 10:48 | XCELERA ---
[id number]
[2024-08-03] MEDS: OPTIRAY 320 125ml IV ONE (11:04)
[2024-08-03] MEDS ORDERED: HEPARIN SOD (PORCINE) 1000 UNIT/ML IV ONE (11:17)
--- NOTE | 2024-08-03 11:41 | Electrocardiogram Report ---
Test Reason : Blood Pressure : */* mmHG Vent. Rate : 109 BPM Atrial Rate : 109 BPM P-R Int : 154 ms QRS Dur : 102 ms QT Int : 364 ms P-R-T Axes : 77 -30 55 degrees QTcB Int : 490 ms Atrial flutter Left axis deviation Low voltage QRS Incomplete right bundle branch block Poor R wave progression, consider anterior MT vs. lead placement vs. LVH Abnormal ECG Confirmed by Nader Kevin ([id number]) on 08/03/2024 11:40:27 AM Referred By: REFERRED SELF Confirmed By: Nader Kevin
--- NOTE | 2024-08-03 11:51 | CT Scan Report ---
ABDOMEN AND PELVIS CT WITH IV CONTRAST CT DOSE: 1451.1 mGy.cm HISTORY: ascites TECHNIQUE: Multiaxial CT images of the abdomen and pelvis were performed following the IV administrat ion of 119 cc of Optiray, A dose lowering technique was utilized adhering to the principles of ALARA . COMPARISON STUDY: None FINDINGS: ABDOMEN: Liver demonstrates mildly lobular contour with mild diffuse heterogeneous enhancement patter n, possible early cirrhosis versus mild fatty liver. No focal liver mass seen. There is a small amoun t of ascites. No splenomegaly. Pancreas and adrenal glands are unremarkable. Kidneys show no hydronep hrosis or calculi. There are mild atherosclerotic calcifications. No abdominal aortic aneurysm. Pelvis: Prostate is mildly enlarged. Urinary bladder is nondistended. There is mild retained stool. N o bowel inflammation or obstruction. No free air or abscess. No enlarged adenopathy. Osseous structures: There is lumbar degenerative disc disease. IMPRESSION: Early cirrhosis versus mild fatty liver with small amount of ascites. Otherwise as descri bed. ACT 112: Negative or not required by law. The above report was generated using voice recognition software. It may contain grammatical, syntax o r spelling errors. Electronically signed by: Nathen Hagan M.D. 08/03/2024 11:49 AM
[2024-08-03 12:51] LABS: Partial Thromboplastin Ratio 0.9; Partial Thromboplastin Time 24 Seconds (21-31)
[2024-08-03] MEDS: HEPARIN 25000 UNIT/500 ML 25,000 UNITS/500 ML BAG IV SCH (12:52)
[2024-08-03] MEDS: HEPARIN SOD (PORCINE) 1000 UNIT/ML IV ONE ×2 (12:52→20:48)
[2024-08-03] MEDS: Heparin IV Adult Wt-Based Low-Dose w/ INITIAL Bolus Protocol IV STA (12:52)
[2024-08-03] MEDS: METOPROLOL TARTRATE 1 MG/ML VIAL IV STA (17:30)
[2024-08-03 19:26] LABS: ANTI-Xa, UFH(UnfractionatedHep 0.18 IU/ml (0.3-0.7)
[2024-08-03] MEDS: METOPROLOL TARTRATE 50 MG TAB PO SCH (20:48)
[2024-08-04 02:49] LABS: Basophils # (auto) 0.04 K/uL (0.00-0.20); Basophils % (auto) 0.5 %; Eosinophils # (auto) 0.09 K/uL (0.00-0.50); Eosinophils % (auto) 1.2 %; Immature Granulocytes # (auto) 0.02 K/uL (0.01-0.20); Immature Granulocytes % (auto) 0.3 %; Lymphocytes # (auto) 1.35 K/uL (1.20-3.40); Lymphocytes % (auto) 17.8 %; Mean Corpuscular Hemoglobin 28.4 pg (25.0-34.0); Mean Corpuscular Hgb Conc 30.6 g/dL (32.0-36.0); Mean Corpuscular Volume 92.6 fL (80.0-100.0); Mean Platelet Volume 11.5 fL (9.4-12.4); Monocytes # (auto) 0.76 K/uL (0.11-0.59); Neutrophils # (auto) 5.34 K/uL (1.40-6.50); Neutrophils % (auto) 70.2 %; Platelet Count 195 K/uL (130-400); RDW Coefficient of Variation 15.6 % (11.5-14.5); RDW Standard Deviation 52.9 fL (36.4-46.3); Red Blood Count 5.29 M/uL (4.70-6.10)
[2024-08-04 02:51] LABS: BUN Creatinine Ratio 17.2 (10-20); Calcium 9.1 mg/dl (8.6-10.3); Creatinine Clr Calc Pharmacy 134.1 ml/min; Potassium 4.2 mmol/L (3.5-5.1)
[2024-08-04 03:01] LABS: ANTI-Xa, UFH(UnfractionatedHep 0.31 IU/ml (0.3-0.7)
--- NOTE | 2024-08-04 07:24 | Hospitalist Progress Note ---
Date of Service August 04, 2024 Assessment & Plan (1) Atrial flutter with rapid ventricular response: (2) Fluid overload: (3) Diabetes: Plan #Atrial flutter/Atrial Fibrillation with RVR #Abdominal and Peripheral Edema - Cardioversion tentatively planned for (08/05); on heparin; NPO at 00:00 (08/05) Cardiology onboard: Echo - EF 40-45% and right sided systolic function severely reduced suggests cor pulmonale secondary to untreated MARINO. Will need outpatient sleep study. Consider DOAC transition on discharge CT abdomen/pelvis: Early cirrhosis vs. mild fatty liver; small ascites Furosemide 40 mg IV BID Metoprolol tartrate 50 mg PO BID - adjust based on tele monitor rates/need for PRN IV metoprolol - Given additional spot dose Metoprolol PO 25mg 08/04 BMP and CBC with differential QAM #Diabetes HbA1C 7.1%; Blood glucose checks ACHS + insulin sliding scale On discharge, consider metformin, ACEi/ARBi, statin +/- GLP-1 agonist, and lifestyle management DVT prophylaxis: Heparin Diet: Heart healthy, fluid restricted Disposition: PCU CODE STATUS: Full code Admission and Anticipated Discharge Date Admission Date: August 02, 2024 Supervising Physician Co-Signing Physician Notes Attending attestation Pt seen and examined in concert with Dr. Conteh. In agreement with the documented findings as noted in the resident documentation with any exceptions or additions as noted here. Improved shortness of breath and orthopnea with fatigue since admission with successful diuresis per patient. Symptoms ongoing. On examination, S1/S2 nl RRR no MCG. decreased BS bilateral bases with visible accessory muscle use while speaking off O2. Abd NT/ND BS+ve. 2+ pitting edema to the knee bilaterally Atrial flutter/Atrial fibrillation with RVR with subsequent fluid overload - cardiology consult - For cardioversion tomorrow AM. Continue diuresis with furosemide. Metoprolol for rate control and uptitrate if rates persistently ~100. Trend creatinine, potassium. New diagnosis of DMII - ISS. Counseling ongoing for lifestyle management and supportive care. Would recommend metformin on discharge, though GLP-1/SGLT2i would have benefit. Suspected MARINO - outpatient sleep study, monitor for nocturnal hypoxia and tachyarrhythmia Else see resident documentation as noted. Abundio Major was seen this morning at bedside along with his daughter. He states that he is fed up with his insurance provider, and they are working with case management. He and his daughter were interested in having more longitudinal care through possibly working with the [facility] family medicine residents. He denies shortness of breath stationary and with exertion. His daughter mentioned that he had an apneic episode last night for about 5-6 seconds, so the placed the oxygen, which Bill denies needing. Otherwise, he is awaiting the cardioversion with no further updates, questions, or concerns. Review of Systems Review of Systems: Per HPI Physical Exam Physical Exam: Constitutional: Sitting at the edge of the bed; Appears tired Respiratory: Nasal cannula in place; Lung sounds are distant due to body habitus, otherwise clear to auscultation bilaterally in the upper and lower lung rust; Conversational without shortness of breath; Respiratory effort and rate appropriate for situation; No accessory respiratory muscle use Cardiovascular: Heart sounds are distant; S1 and S2 appreciated; Tachycardic Abdomen: Normoactive bowel sounds; Full to palpation; Cannot appreciate organomegaly due to body habitus Extremities: BLE pitting edema Results & Data Results & Data Vital Signs (Past 12 Hours) Vital Signs Temp Pulse Pulse Resp BP BP Pulse Ox 08/04/24 07:10 36.3 C L 101 H 18 97/62 L 92 08/04/24 03:08 36.7 C 80 22 142/99 H 92 08/04/24 01:37 105 H 151/101 H 08/04/24 00:00 08/03/24 23:31 102 H 08/03/24 23:13 08/03/24 22:49 36.8 C 127 H 22 149/112 H 90 08/03/24 20:00 O2 Del Method O2 Del Method 08/04/24 07:10 Nasal Cannula 08/04/24 03:08 Room Air 08/04/24 01:37 08/04/24 00:00 Room Air 08/03/24 23:31 08/03/24 23:13 Room Air 08/03/24 22:49 Room Air 08/03/24 20:00 Room Air Resident Activity Tracking Resident Involvement: Resident Care Provided Care Provided: Adult Hospital Medicine (2) Fluid overload Hypervolemia type: unspecified Qualified Code(s): E87.70 - Fluid overload, unspecified
[2024-08-04] MEDS: METOPROLOL TARTRATE 25 MG TAB PO STA (09:14)
--- NOTE | 2024-08-04 11:03 | Cardiology Progress Note ---
Date of Service August 04, 2024 Assessment & Plan (1) Atrial flutter with rapid ventricular response: (2) Right ventricular failure: Plan 1. Atrial flutter: Still with some high ventricular rates. I think efforts at rate control will be difficult. Primary treatment will be returning to a sinus rhythm followed by elective ablation. Will continue with diuresis today and tentatively schedule him for MAG and cardioversion tomorrow morning. Continue heparin with transition to oral agents subsequent to cardioversion. 2. Cor pulmonale: Most of his failure seems to be right-sided. Likely related to obesity hypoventilation and/or obstructive sleep apnea. May also have an element of hypoxemia at nighttime. 3. Cardiomyopathy: An element of left and right sided failure. Will start a regimen for cardiomyopathy subsequent to cardioversion. If his blood pressure remains high we could consider MEL inhibition later today. 4. Acute decompensated heart failure: Mostly right-sided. Lung examination was relatively benign. Most of his complaints include just bloating and lower extremity edema. Continue diuresis monitoring his blood pressures closely. Unclear how dependent he is on preload. Admission and Anticipated Discharge Date Admission Date: August 02, 2024 Subjective This morning the patient claimed to be feeling better. Breathing overall seems to have improved. He feels as if his abdominal distention is also improved but certainly not back to baseline. Ambulatory around the wound. He did not report sleeping difficulty last night. Reported to have low oxygen and a brief ventricular pause for which she was unaware. Review of Systems Review of Systems: Per HPI Physical Exam Physical Exam: The patient is alert and oriented. Mood and affect appeared normal. He answered all questions appropriately. Obese HEENT: Pupils are equal and reactive to light and accommodation. Extraocular movements are intact. The sclerae are anicteric. Neuro: Cranial nerves intact Lungs: Clear to auscultation bilaterally. He has good air movement without use of accessory muscles. No rales wheezes or rhonchi. Cardiac: Heart demonstrates a rapid and irregular rhythm. Normal S1 and S2. No murmurs on examination. Pulses: The patient has palpable radial pulses bilaterally that are equal in intensity Abdomen: Markedly obese and distended. Nontender to palpation. Extremities: There was no evidence of hypoperfusion. There is no cyanosis or clubbing. Moderate lower extremity edema Skin: I did not appreciate any rashes on examination today. Results & Data Vital Signs (Past 12 Hours) Vital Signs Temp Pulse Pulse Resp BP BP Pulse Ox 08/04/24 09:06 162/93 H 08/04/24 07:10 36.3 C L 101 H 18 97/62 L 92 08/04/24 07:00 91 H 08/04/24 03:08 36.7 C 80 22 142/99 H 92 08/04/24 01:37 105 H 151/101 H 08/04/24 00:00 08/03/24 23:31 102 H 08/03/24 23:13 O2 Del Method O2 Del Method 08/04/24 09:06 08/04/24 07:10 Nasal Cannula 08/04/24 07:00 08/04/24 03:08 Room Air 08/04/24 01:37 08/04/24 00:00 Room Air 08/03/24 23:31 08/03/24 23:13 Room Air Laboratory Results Abnormal Lab Results 08/03/24 08/03/24 08/03/24 11:16 12:08 15:10 WBC RBC Hgb Hct MCV MCH MCHC RDW Std Deviation RDW Coeff of Holly Plt Count MPV Immature Gran % (Auto) Neut % (Auto) Lymph % (Auto) Wheeler % (Auto) Eos % (Auto) Baso % (Auto) Neut # (Auto) Lymph # (Auto) Wheeler # (Auto) Eos # (Auto) Baso # (Auto) Immature Gran # (Auto) APTT 24 PTT Ratio 0.9 Heparin Anti-Xa, Unfract Sodium Potassium Chloride Carbon Dioxide Anion Gap BUN Creatinine Est Cr Clr Drug Dosing eGFR BUN/Creatinine Ratio Glucose POC Glucose 109 H Calcium Troponin I High Sens 21.7 H 08/03/24 08/03/24 08/03/24 16:20 18:49 20:26 WBC RBC Hgb Hct MCV MCH MCHC RDW Std Deviation RDW Coeff of Holly Plt Count MPV Immature Gran % (Auto) Neut % (Auto) Lymph % (Auto) Wheeler % (Auto) Eos % (Auto) Baso % (Auto) Neut # (Auto) Lymph # (Auto) Wheeler # (Auto) Eos # (Auto) Baso # (Auto) Immature Gran # (Auto) APTT PTT Ratio Heparin Anti-Xa, Unfract 0.18 L Sodium Potassium Chloride Carbon Dioxide Anion Gap BUN Creatinine Est Cr Clr Drug Dosing eGFR BUN/Creatinine Ratio Glucose POC Glucose 112 H 142 H Calcium Troponin I High Sens 08/04/24 08/04/24 01:57 07:14 WBC 7.60 RBC 5.29 Hgb 15.0 Hct 49.0 MCV 92.6 MCH 28.4 MCHC 30.6 L RDW Std Deviation 52.9 H RDW Coeff of Holly 15.6 H Plt Count 195 MPV 11.5 Immature Gran % (Auto) 0.3 Neut % (Auto) 70.2 Lymph % (Auto) 17.8 Wheeler % (Auto) 10.0 Eos % (Auto) 1.2 Baso % (Auto) 0.5 Neut # (Auto) 5.34 Lymph # (Auto) 1.35 Wheeler # (Auto) 0.76 H Eos # (Auto) 0.09 Baso # (Auto) 0.04 Immature Gran # (Auto) 0.02 APTT PTT Ratio Heparin Anti-Xa, Unfract 0.31 Sodium 139 Potassium 4.2 Chloride 96 L Carbon Dioxide 36 H Anion Gap 7 BUN 17 Creatinine 0.99 Est Cr Clr Drug Dosing 134.1 eGFR 88.30 BUN/Creatinine Ratio 17.2 Glucose 128 H POC Glucose 123 H Calcium 9.1 Troponin I High Sens PG Care Time/CCT Total # of Minutes Spent Total Time Spent with Patient: Total time spent is greater than 50% in coordination of care (as documented) at patient's floor/unit and/or counseling patient: Coding Level of Care Code 93133 SUB INP/OBS CARE 2/35MIN Diagnoses Atrial flutter with rapid ventricular response I48.92 Right ventricular failure I50.810
--- NOTE | 2024-08-04 13:38 | Electrocardiogram Report ---
Test Reason : Blood Pressure : */* mmHG Vent. Rate : 142 BPM Atrial Rate : 142 BPM P-R Int : 152 ms QRS Dur : 118 ms QT Int : 282 ms P-R-T Axes : * -57 33 degrees QTcB Int : 433 ms Atrial flutter Left axis deviation Low voltage QRS Incomplete right bundle branch block Possible Inferior infarct , age undetermined Poor R wave progression, consider anterior [place] vs. lead placement vs. LVH Abnormal ECG When compared with ECG of 02-Aug-2024 17:04, Premature supraventricular complexes are no longer Present Confirmed by Nader Kevin ([id number]) on 08/04/2024 1:37:44 PM Referred By: REFERRED SELF Confirmed By: Nader Kevin
[2024-08-04] MEDS ORDERED: POLYETHYLENE (MIRALAX) 17 GM PACK PO PRN (18:01)
[2024-08-05 07:14] LABS: Basophils # (auto) 0.03 K/uL (0.00-0.20); Basophils % (auto) 0.4 %; Eosinophils # (auto) 0.09 K/uL (0.00-0.50); Eosinophils % (auto) 1.2 %; Hematocrit (blood only) 50.4 % (42.0-52.0); Hemoglobin 15.2 g/dl (14.0-18.0); Immature Granulocytes # (auto) 0.02 K/uL (0.01-0.20); Immature Granulocytes % (auto) 0.3 %; Lymphocytes # (auto) 1.09 K/uL (1.20-3.40); Mean Corpuscular Hemoglobin 28.8 pg (25.0-34.0); Mean Corpuscular Hgb Conc 30.2 g/dL (32.0-36.0); Mean Corpuscular Volume 95.5 fL (80.0-100.0); Mean Platelet Volume 10.9 fL (9.4-12.4); Monocytes # (auto) 0.72 K/uL (0.11-0.59); Monocytes % (auto) 9.9 %; Neutrophils # (auto) 5.33 K/uL (1.40-6.50); Neutrophils % (auto) 73.2 %; Platelet Count 185 K/uL (130-400); RDW Coefficient of Variation 15.5 % (11.5-14.5); RDW Standard Deviation 54.3 fL (36.4-46.3); Red Blood Count 5.28 M/uL (4.70-6.10); White Blood Count 7.28 K/ul (4.8-10.8)
--- NOTE | 2024-08-05 07:18 | Hospitalist Progress Note ---
Date of Service August 05, 2024 Assessment & Plan (1) Atrial flutter with rapid ventricular response: (2) Fluid overload: (3) Diabetes: Plan #Atrial flutter/Atrial Fibrillation with RVR #Abdominal and Peripheral Edema - Cardioversion tentatively planned for (08/05); on heparin; NPO at 00:00 (08/05) Cardiology onboard: Echo - EF 40-45% and right sided systolic function severely reduced suggests cor pulmonale secondary to untreated MARINO. Will need outpatient sleep study. Consider DOAC transition on discharge CT abdomen/pelvis: Early cirrhosis vs. mild fatty liver; small ascites Furosemide 40 mg IV BID Metoprolol tartrate 50 mg PO BID - adjust based on tele monitor rates/need for PRN IV metoprolol - Given additional spot dose Metoprolol PO 25mg 08/04 BMP and CBC with differential QAM #Diabetes HbA1C 7.1%; Blood glucose checks ACHS + insulin sliding scale On discharge, consider metformin, ACEi/ARBi, statin +/- GLP-1 agonist, and lifestyle management DVT prophylaxis: Heparin Diet: Heart healthy, fluid restricted Disposition: PCU CODE STATUS: Full code Admission and Anticipated Discharge Date Admission Date: August 02, 2024 Results & Data Results & Data Vital Signs (Past 12 Hours) Vital Signs Temp Pulse Pulse Resp BP BP Pulse Ox 08/05/24 07:06 135 H 08/05/24 03:48 36.8 C 105 H 16 128/75 96 08/04/24 23:30 08/04/24 22:35 36.9 C 107 H 18 147/94 H 94 08/04/24 20:00 08/04/24 20:00 94 H 08/04/24 20:00 08/04/24 19:32 36.9 C 107 H 18 132/90 91 O2 Del Method O2 Del Method O2 Flow Rate 08/05/24 07:06 08/05/24 03:48 Nasal Cannula 2.5 08/04/24 23:30 Nasal Cannula 2 08/04/24 22:35 Nasal Cannula 08/04/24 20:00 Nasal Cannula 2 08/04/24 20:00 08/04/24 20:00 Room Air 08/04/24 19:32 Room Air (2) Fluid overload Hypervolemia type: unspecified Qualified Code(s): E87.70 - Fluid overload, unspecified
--- NOTE | 2024-08-05 07:19 | Anesthesiology Consultation ---
Date of Service August 05, 2024 Assessment & Plan (1) Encounter for pre-operative examination: Chart Review Chart Review: Acceptable Risk for Surgery and Patient NOT seen in Pre Admission Testing Consults Requested none History Surgery Operation Date: 08/05/24 07:30 Proposed Procedures p Transesophageal Echo w/Anesthesia - Nader Kevin MD s Kuldeep with cardioversion - Nader Kevin MD Height/Weight Height: 5 ft 10 in Weight: 178.5 kg Allergies Allergy/AdvReac Type Severity Reaction Status Date / Time No Known Allergies Allergy Unverified 09/24/15 10:25 Medications Home Medications Medication Instructions Recorded Confirmed Last Taken No Known Home Medications 08/02/24 08/02/24 Unknown Active Medications Generic Name Dose Route Start Last Admin Trade Name Miahq PRN Reason Stop Dose Admin Furosemide 40 mg 08/03/24 09:00 08/04/24 17:34 Furosemide 40 Mg/4 Ml Vial IV 09/02/24 08:59 40 mg [id number] VERÓNICA Administration Heparin Sodium/Dextrose 25,000 units in 500 mls @ 25 mls/hr 08/03/24 11:30 08/05/24 07:02 Heparin Drip IV 09/02/24 11:29 1,250 units/hr .Q20H VERÓNICA 25 mls/hr Titration Protocol 1,250 UNITS/HR Insulin Aspart 0 units 08/02/24 21:00 08/05/24 07:13 Insulin Aspart Per Unit Charge SC 09/01/24 20:59 Not Given ACHS VERÓNICA Metoprolol Tartrate 50 mg 08/03/24 21:00 08/04/24 21:42 Metoprolol Tartrate 50 Mg Tab PO 09/02/24 20:59 50 mg BID VERÓNICA Administration Past Medical History Medical History No pertinent past medical history Past Surgical History Surgical History History of hernia surgery History of surgery on arm Social History Smoking Status: Unknown if ever smoked Hx Alcohol Use: No Hx Substance Use: Yes substance use type: marijuana Physical Exam Vital Signs Last Vital Signs Temp 98.2 F 08/05/24 03:48 Pulse 135 H 08/05/24 07:06 Resp 16 08/05/24 03:48 BP 128/75 08/05/24 03:48 Pulse Ox 96 08/05/24 03:48 O2 Del Method Nasal Cannula 08/05/24 03:48 O2 Flow Rate 2.5 08/05/24 03:48 Testing Laboratory Results 08/05/24 07:01 PT 12.0 Seconds (9.0-12.0) 08/02/24 15:44 INR 1.1 (0.9-1.1) 08/02/24 15:44 APTT 24 Seconds (21-31) 08/03/24 12:08 Hemoglobin A1c 7.1 % (4.5-5.6) H 08/03/24 03:48 Urine Color Yellow 08/02/24 19:07 Urine Appearance Clear (Clear) 08/02/24 19:07 Urine pH 5.0 (4.5-7.5) 08/02/24 19:07 Ur Specific [place] 1.010 (1.000-1.030) 08/02/24 19:07 Urine Protein Negative (Negative) 08/02/24 19:07 Urine Glucose (UA) Negative (Negative) 08/02/24 19:07 Urine Ketones Negative (Negative) 08/02/24 19:07 Urine Nitrite Negative (Negative) 08/02/24 19:07 Ur Leukocyte Esterase Negative (Negative) 08/02/24 19:07 08/04/24 20:43 POC Glucose 99 Electrocardiogram Date: 08/03/24 Findings: + RBBB Atrial Flutter LAD low voltage QRS Echocardiogram Date: 08/03/24 EF: 40-45 LV Function: mild reduc severely reduced RV systolic function
[2024-08-05 07:36] LABS: ANTI-Xa, UFH(UnfractionatedHep 0.12 IU/ml (0.3-0.7)
[2024-08-05 07:39] LABS: BUN Creatinine Ratio 15.4 (10-20); Blood Urea Nitrogen 18 mg/dl (6-23); Calcium 9.5 mg/dl (8.6-10.3); Carbon Dioxide > 45 mmol/L (21-32); Chloride 92 mmol/L (98-107); Creatinine Clr Calc Pharmacy 112.1 ml/min; Glucose 129 mg/dl (70-99(Fasting)); Sodium 139 mmol/L (136-145)
[2024-08-05] MEDS: BENZOCAINE/TETRACAIN/BUTAM 50 APPLN/5 GM CAN EXT ONE (07:46)
--- NOTE | 2024-08-05 08:14 | Anesthesiology Progress Note ---
Date of Service August 05, 2024 Anesthesia Post Procedure Vital Signs Vital Signs: Temp Pulse Pulse Resp BP BP BP 08/05/24 08:06 116 H 18 146/91 H 08/05/24 07:24 98.1 F 119 H 18 168/131 H 08/05/24 07:06 135 H 08/05/24 03:48 98.2 F 105 H 16 128/75 08/04/24 23:30 08/04/24 22:35 98.4 F 107 H 18 147/94 H 08/04/24 20:00 08/04/24 20:00 94 H 08/04/24 20:00 08/04/24 19:32 98.4 F 107 H 18 132/90 08/04/24 15:26 98.1 F 88 18 114/76 08/04/24 13:00 98 H 08/04/24 10:58 99.0 F 138 H 20 100/75 08/04/24 09:06 162/93 H Pulse Ox O2 Del Method O2 Del Method O2 Flow Rate 08/05/24 08:06 97 Oxymask 8 08/05/24 07:24 88 L Nasal Cannula 2 08/05/24 07:06 08/05/24 03:48 96 Nasal Cannula 2.5 08/04/24 23:30 Nasal Cannula 2 08/04/24 22:35 94 Nasal Cannula 08/04/24 20:00 Nasal Cannula 2 08/04/24 20:00 08/04/24 20:00 Room Air 08/04/24 19:32 91 Room Air 08/04/24 15:26 95 Nasal Cannula 3 08/04/24 13:00 08/04/24 10:58 96 Nasal Cannula 3 08/04/24 09:06 Transfer of Care Handoff Completed per policy Notes Mental Status: alert / awake / arousable and participated in evaluation Patient Amnestic to Procedure: Yes Nausea / Vomiting: adequately controlled Pain: adequately controlled Airway Patency, RR, SpO2: stable & adequate BP & HR: stable & adequate Hydration State: stable & adequate Anesthetic Complications: no major complications apparent and Pt Satisfied with anesthetic care
--- NOTE | 2024-08-05 08:43 | Cardiology Progress Note ---
Date of Service August 05, 2024 Assessment & Plan (1) Atrial flutter with rapid ventricular response: (2) Right ventricular failure: Plan 1. Atrial flutter: He was brought down for cardioversion today. However a transesophageal echocardiogram suggested thrombus in the left atrial appendage and no cardioversion was performed. Will need to concentrate on rate control and continue systemic anticoagulation for a few weeks. At that point I would simply schedule him for catheter-based therapy. 2. Cor pulmonale: Most of his failure seems to be right-sided. Likely related to obesity hypoventilation and/or obstructive sleep apnea. May also have an element of hypoxemia at nighttime. 3. Cardiomyopathy: An element of left and right sided failure. Will start a regimen for cardiomyopathy subsequent to cardioversion. His metoprolol to tartrate dose can be converted to metoprolol succinate at the time of discharge. Will see how he tolerates his higher dose of metoprolol today and then add an MEL inhibitor or Entresto. Possibly some cost constraints regarding medications and insurance. Given his normal renal function and elevated glucose in the setting of heart failure with midrange ejection fraction would seem reasonable to start an SGLT2 inhibitor as well. Again, possibly some cost constraints at the time of discharge. 4. Acute decompensated heart failure: Mostly right-sided. Lung examination was relatively benign. Most of his complaints include just bloating and lower extremity edema. Continue diuresis monitoring his blood pressures closely. Unclear how dependent he is on preload. When he is ambulatory with few symptoms and his heart rates are reasonably controlled, I think he would be safe for discharge. He probably requires a daily dose of diuretic given his hypervolemia. He should be discharged metoprolol succinate and an MEL inhibitor/Entresto. SGLT2 inhibitor would also be indicated if affordable. He can follow-up in the cardiology clinic in a couple of weeks at which point we will arrange for ablation. Admission and Anticipated Discharge Date Admission Date: August 02, 2024 Subjective This morning the patient reported feeling about the same. Mild dyspnea but not limiting. Back and forth to the bathroom without dizziness or lightheadedness. Still some abdominal distention but improving overall. No sense of palpitation. Review of Systems Review of Systems: Per HPI Physical Exam Physical Exam: The patient is alert and oriented. Mood and affect appeared normal. He answered all questions appropriately. Obese HEENT: Pupils are equal and reactive to light and accommodation. Extraocular movements are intact. The sclerae are anicteric. Neuro: Cranial nerves intact Lungs: Clear to auscultation bilaterally. He has good air movement without use of accessory muscles. No rales wheezes or rhonchi. Cardiac: Heart demonstrates a rapid and irregular rhythm. Normal S1 and S2. No murmurs on examination. Pulses: The patient has palpable radial pulses bilaterally that are equal in intensity Abdomen: Markedly obese and distended. Nontender to palpation. Extremities: There was no evidence of hypoperfusion. There is no cyanosis or clubbing. Moderate lower extremity edema Skin: I did not appreciate any rashes on examination today. Results & Data Vital Signs (Past 12 Hours) Vital Signs Temp Pulse Pulse Resp BP BP BP 08/05/24 08:21 121 H 18 154/115 H 08/05/24 08:06 116 H 18 146/91 H 08/05/24 07:24 36.7 C 119 H 18 168/131 H 08/05/24 07:06 135 H 08/05/24 03:48 36.8 C 105 H 16 128/75 08/04/24 23:30 08/04/24 22:35 36.9 C 107 H 18 147/94 H Pulse Ox O2 Del Method O2 Flow Rate 08/05/24 08:21 98 Nasal Cannula 2 08/05/24 08:06 97 Oxymask 8 08/05/24 07:24 88 L Nasal Cannula 2 08/05/24 07:06 08/05/24 03:48 96 Nasal Cannula 2.5 08/04/24 23:30 Nasal Cannula 2 08/04/24 22:35 94 Nasal Cannula Laboratory Results Abnormal Lab Results 08/04/24 08/04/24 08/04/24 11:04 16:22 20:43 WBC RBC Hgb Hct MCV MCH MCHC RDW Std Deviation RDW Coeff of Holly Plt Count MPV Immature Gran % (Auto) Neut % (Auto) Lymph % (Auto) [place] % (Auto) Eos % (Auto) Baso % (Auto) Neut # (Auto) Lymph # (Auto) [place] # (Auto) Eos # (Auto) Baso # (Auto) Immature Gran # (Auto) Heparin Anti-Xa, Unfract Sodium Potassium Chloride Carbon Dioxide Anion Gap BUN Creatinine Est Cr Clr Drug Dosing eGFR BUN/Creatinine Ratio Glucose POC Glucose 131 H 115 H 99 Calcium 08/05/24 07:01 WBC 7.28 RBC 5.28 Hgb 15.2 Hct 50.4 MCV 95.5 MCH 28.8 MCHC 30.2 L RDW Std Deviation 54.3 H RDW Coeff of Holly 15.5 H Plt Count 185 MPV 10.9 Immature Gran % (Auto) 0.3 Neut % (Auto) 73.2 Lymph % (Auto) 15.0 [place] % (Auto) 9.9 Eos % (Auto) 1.2 Baso % (Auto) 0.4 Neut # (Auto) 5.33 Lymph # (Auto) 1.09 L [place] # (Auto) 0.72 H Eos # (Auto) 0.09 Baso # (Auto) 0.03 Immature Gran # (Auto) 0.02 Heparin Anti-Xa, Unfract 0.12 L Sodium 139 Potassium 5.0 Chloride 92 L Carbon Dioxide > 45 H* Anion Gap TNP BUN 18 Creatinine 1.17 Est Cr Clr Drug Dosing 112.1 eGFR 72.26 BUN/Creatinine Ratio 15.4 Glucose 129 H POC Glucose Calcium 9.5 Diagnostic Findings Transesophageal echocardiogram performed today. Mild mitral digitation. Thrombus in the left atrial appendage. Biatrial dilation. Poor RV function. PG Care Time/CCT Total # of Minutes Spent Total Time Spent with Patient: Total time spent is greater than 50% in coordination of care (as documented) at patient's floor/unit and/or counseling patient: Coding Level of Care Code 38365 SUB INP/OBS CARE 2/35MIN Diagnoses Atrial flutter with rapid ventricular response I48.92 Right ventricular failure I50.810
--- NOTE | 2024-08-05 10:34 | XCELERA ---
[id number]
[2024-08-05] MEDS: EMPAGLIFLOZIN 10 MG TAB PO SCH (10:46)
[2024-08-05] MEDS: METOPROLOL TARTRATE 25 MG TAB PO SCH (10:46)
[2024-08-05] MEDS: APIXABAN 5 MG TABLET PO SCH (10:46)
--- NOTE | 2024-08-05 12:38 | Hospitalist Progress Note ---
Date of Service August 05, 2024 Assessment & Plan (1) Atrial flutter with rapid ventricular response: (2) Fluid overload: (3) Diabetes: Plan #Atrial flutter/Atrial Fibrillation with RVR #Abdominal and Peripheral Edema - Cardioversion was called off (08/06) due to clot; switched anticoagulation to apixaban - Empagliflozin added; Metoprolol increased from 50 to 75 mg PO BID Cardiology onboard: Echo - EF 40-45% and right sided systolic function severely reduced suggests cor pulmonale secondary to untreated MARINO. Will need outpatient sleep study. CT abdomen/pelvis: Early cirrhosis vs. mild fatty liver; small ascites Furosemide 40 mg IV BID; Cr QAM Encourage CPAP #Diabetes HbA1C 7.1%; Blood glucose checks ACHS + insulin sliding scale Prior to discharge, consider metformin, ACEi/ARBi, statin +/- GLP-1 agonist, and lifestyle management within patient agreement and financial abilities DVT prophylaxis: Apixaban Diet: Heart healthy, fluid restricted Disposition: PCU CODE STATUS: Full code Admission and Anticipated Discharge Date Admission Date: August 02, 2024 Supervising Physician Co-Signing Physician Notes Attending Physician Supervision Note: I independently interviewed and examined the patient and verified the page history and physical, reviewed labs and image studies and agree with findings and care plan noted above. Improving. no chest pain. breathing better but still needing O2 when laying down. On examination, RRR, JVD +, decreased breath sounds at base, Abdominal wall and leg edema + Atrial flutter/Atrial fibrillation with RVR - cardiology consult - Cardioversion cancelled - MAG suggested clot in LA appendage. Continue metoprolol. Eliquis. LV appendage clot - Eliquis Acute HFmrEF - Mostly right sided. CMP likely from obesity Hypoventilation syndrome. -Continue diuresis with furosemide. Will need to monitor preload dependence in setting of severe right heart dysfunction. -Renal fx stable. -Losartan vs Entresto based on cost affordability. Will also need SGLT2i. New diagnosis of DMII - SSI. Counseling ongoing for lifestyle management and s upportive care. Would recommend metformin on discharge, though GLP-1/SGLT2i would have benefit. Suspected OHS/MARINO - outpatient sleep study, monitor for nocturnal hypoxia Else see resident documentation as noted. Subjective Bill was seen this morning after his attempted cardioversion. He was updated by Dr. Kevin and remains concerned about his recommended medications due to insurance coverage and potential to play. He has no shortness of breath, no chest pain, abdominal distention/bloat present. Mentioned he has a sore throat after the MAG and a slight loss of words after the anesthesia. He would like "to get out of here as soon as possible". We will update him regarding insurance and prescription payment plans. Otherwise, he has no further comments, questions, or concerns. Review of Systems Review of Systems: Per HPI Physical Exam Physical Exam: Constitutional: Sitting at the edge of the bed; Alert Respiratory: Lung sounds are distant due to body habitus, otherwise clear to auscultation bilaterally in the upper and lower lung rust; Conversational without shortness of breath; Respiratory effort and rate appropriate for situation; No accessory respiratory muscle use Cardiovascular: Heart sounds are distant; S1 and S2 appreciated; Tachycardic Abdomen: Normoactive bowel sounds; Full to palpation; Cannot appreciate organomegaly due to body habitus Extremities: BLE pitting edema Results & Data Results & Data Vital Signs (Past 12 Hours) Vital Signs Temp Pulse Pulse Resp BP BP BP 08/05/24 11:09 37.3 C 117 H 20 111/84 08/05/24 10:12 130 H 08/05/24 09:31 08/05/24 09:24 36.7 C 106 H 22 111/75 08/05/24 08:54 36.6 C 107 H 22 110/75 08/05/24 08:51 36.7 C 137 H 18 106/71 08/05/24 08:21 121 H 18 154/115 H 08/05/24 08:06 116 H 18 146/91 H 08/05/24 07:24 36.7 C 119 H 18 168/131 H 08/05/24 07:06 135 H 08/05/24 03:48 36.8 C 105 H 16 128/75 Pulse Ox O2 Del Method O2 Flow Rate 08/05/24 11:09 92 Nasal Cannula 2 08/05/24 10:12 08/05/24 09:31 Nasal Cannula 2 08/05/24 09:24 99 Nasal Cannula 2 08/05/24 08:54 99 Nasal Cannula 2 08/05/24 08:51 99 Nasal Cannula 2 08/05/24 08:21 98 Nasal Cannula 2 08/05/24 08:06 97 Oxymask 8 08/05/24 07:24 88 L Nasal Cannula 2 08/05/24 07:06 08/05/24 03:48 96 Nasal Cannula 2.5 (2) Fluid overload Hypervolemia type: unspecified Qualified Code(s): E87.70 - Fluid overload, unspecified
[2024-08-05] MEDS: COUGH DROP (SUGAR FREE) LOZ 24 LOZ/1 BOX BUCCAL ONE (15:35)
--- NOTE | 2024-08-06 06:57 | Hospitalist Progress Note ---
Date of Service August 06, 2024 Assessment & Plan (1) Atrial flutter with rapid ventricular response: (2) Fluid overload: (3) Diabetes: (4) Right ventricular failure: (5) Atrial flutter: (6) Left atrial thrombus: Plan #Atrial flutter/Atrial Fibrillation with RVR #Abdominal and Peripheral Edema #Left atrial thrombosis #Right ventricular failure -TTE showed an EF of 40-45% with right ventricular systolic function severely reduced. -Cardioversion was called off (08/06) due 2 clot in the LA appendage; switched anticoagulation to Eliquis. -Empagliflozin added; Metoprolol increased from 50 to 75 mg PO BID -Cardiology onboard: Echo - EF 40-45% and right sided systolic function severely reduced suggests cor pulmonale secondary to untreated MARINO. Will need outpatient sleep study. -CT abdomen/pelvis: Early cirrhosis vs. mild fatty liver; small ascites -Furosemide 40 mg IV BID; will most likely need follow-up with heart failure clinic as well as p.o. Lasix. -Currently -6 L I's and O's since admission. Creatinine has remained stable. -Encourage CPAP, will trial on 08/06. #Diabetes -HbA1C 7.1%; Blood glucose checks ACHS + insulin sliding scale -Prior to discharge, consider metformin, ACEi/ARBi, statin +/- GLP-1 agonist, and lifestyle management within patient agreement and financial abilities -Also patient with obesity most likely having underlying sleep apnea. May benefit from GLP-1 inhibitor. This can be discussed at outpatient follow-up. DVT prophylaxis: Apixaban Diet: Heart healthy, fluid restricted Disposition: PCU CODE STATUS: Full code Admission and Anticipated Discharge Date Admission Date: August 02, 2024 Supervising Physician Co-Signing Physician Notes Attending Physician Supervision Note: I independently interviewed and examined the patient and verified the page history and physical, reviewed labs and image studies and agree with findings and care plan noted above. Improving. No new concerns. Not able to tolerate cpap. On examination, RRR, JVD +, decreased breath sounds at base, Abdominal wall and leg edema + Atrial flutter/Atrial fibrillation with RVR - cardiology consult - Cardioversion cancelled - MAG suggested clot in LA appendage. Continue metoprolol. Eliquis. LA appendage clot - Eliquis Acute HFmrEF - Mostly right sided. CMP likely from obesity Hypoventilation syndrome. Small ascites/probable cirrhosis vs fatty liver ds - likely from hepatic congestion d/t RHF -While diuresing - Will need to monitor preload dependence in setting of severe right heart dysfunction. -will increase lasix to TID dose. -Neg 6 L -Renal fx stable. -Losartan vs Entresto based on cost affordability. Will also need SGLT2i. New diagnosis of DMII - SSI. Counseling ongoing for lifestyle management and supportive care. Would recommend metformin on discharge, though GLP-1/SGLT2i would have benefit. Suspected OHS/MARINO - outpatient sleep study, monitor for nocturnal hypoxia. -Not able to tolerate cpap here. Else see resident documentation as noted. Subjective Patient seen bedside this morning. States that his lower extremity edema and breathing have improved. Denies any shortness of breath. Did not use the CPAP overnight but wishes to trial today with a nap. Review of Systems Review of Systems: All systems reviewed & are unremarkable except as noted in HPI & below Physical Exam Physical Exam: Constitutional: well-appearing, no acute distress, obese HEENT: NCAT, no conjunctival injection CV: regular rhythm, no murmur appreciated, extremities well-perfused, bilateral lower extremity edema Resp: CTABL, no wheezes/rales/rhonchi appreciated, no increased work of breathing GI: nontender, BS normoactive, ascites appreciated MSK: no gross deformities appreciated Skin: warm, dry, no rash appreciated Neuro: alert, oriented, no focal neurologic deficit appreciated Results & Data Results & Data Vital Signs (Past 12 Hours) Vital Signs Temp Pulse Pulse Resp BP Pulse Ox O2 Del Method 08/06/24 02:35 36.8 C 101 H 18 120/65 97 Nasal Cannula 08/05/24 22:58 36.7 C 90 18 133/78 97 Nasal Cannula 08/05/24 21:43 93 H 08/05/24 19:31 37.3 C 77 18 103/65 96 Nasal Cannula 08/05/24 19:30 Nasal Cannula O2 Flow Rate 08/06/24 02:35 2 08/05/24 22:58 2.0 08/05/24 21:43 08/05/24 19:31 2.0 08/05/24 19:30 2 (2) Fluid overload Hypervolemia type: unspecified Qualified Code(s): E87.70 - Fluid overload, unspecified
[2024-08-06 07:41] LABS: Basophils # (auto) 0.04 K/uL (0.00-0.20); Basophils % (auto) 0.5 %; Eosinophils # (auto) 0.09 K/uL (0.00-0.50); Eosinophils % (auto) 1.2 %; Hematocrit (blood only) 47.1 % (42.0-52.0); Hemoglobin 14.4 g/dl (14.0-18.0); Immature Granulocytes # (auto) 0.02 K/uL (0.01-0.20); Immature Granulocytes % (auto) 0.3 %; Lymphocytes # (auto) 1.02 K/uL (1.20-3.40); Mean Corpuscular Hemoglobin 28.8 pg (25.0-34.0); Mean Corpuscular Hgb Conc 30.6 g/dL (32.0-36.0); Mean Corpuscular Volume 94.2 fL (80.0-100.0); Mean Platelet Volume 11.1 fL (9.4-12.4); Monocytes # (auto) 0.83 K/uL (0.11-0.59); Monocytes % (auto) 11.4 %; Neutrophils # (auto) 5.29 K/uL (1.40-6.50); Neutrophils % (auto) 72.6 %; Platelet Count 170 K/uL (130-400); RDW Coefficient of Variation 15.3 % (11.5-14.5); White Blood Count 7.29 K/ul (4.8-10.8)
[2024-08-06 08:08] LABS: BUN Creatinine Ratio 18.3 (10-20); Calcium 9.5 mg/dl (8.6-10.3); Creatinine Clr Calc Pharmacy 125.9 ml/min; Potassium 3.9 mmol/L (3.5-5.1)
[2024-08-06] MEDS: FUROSEMIDE 40 MG/4 ML VIAL IV ONE (17:02)
[2024-08-06] MEDS: METOPROLOL TARTRATE 25 MG TAB PO ONE (18:31)
[2024-08-06] MEDS: FUROSEMIDE 40 MG/4 ML VIAL IV SCH (21:03)
--- NOTE | 2024-08-07 06:47 | Hospitalist Progress Note ---
Date of Service August 07, 2024 Assessment & Plan (1) Atrial flutter with rapid ventricular response: (2) Fluid overload: (3) Diabetes: (4) Right ventricular failure: (5) Atrial flutter: (6) Left atrial thrombus: Plan #Atrial flutter/Atrial Fibrillation with RVR #Abdominal and Peripheral Edema #Left atrial thrombosis #Right ventricular failure -TTE showed an EF of 40-45% with right ventricular systolic function severely reduced. -Cardioversion was called off (08/06) due 2 clot in the LA appendage; switched anticoagulation to Eliquis. -Empagliflozin added; Metoprolol increased from 50 to 75 mg PO BID -Cardiology onboard: Echo - EF 40-45% and right sided systolic function severely reduced suggests cor pulmonale secondary to untreated MARINO. Will need outpatient sleep study. -CT abdomen/pelvis: Early cirrhosis vs. mild fatty liver; small ascites -Furosemide 40 mg IV BID; will most likely need follow-up with heart failure clinic as well as p.o. Lasix. -Increase furosemide to 40 mg IV 3 times daily on 08/06. -Currently -7.5 L I's and O's since admission. Creatinine has remained stable. -Encourage CPAP, not able to tolerate due to comfort. #Diabetes -HbA1C 7.1%; Blood glucose checks ACHS + insulin sliding scale -Prior to discharge, consider metformin, ACEi/ARBi, statin +/- GLP-1 agonist, and lifestyle management within patient agreement and financial abilities -Also patient with obesity most likely having underlying sleep apnea. May benefit from GLP-1 inhibitor. This can be discussed at outpatient follow-up. DVT prophylaxis: Apixaban Diet: Heart healthy, fluid restricted Disposition: PCU CODE STATUS: Full code Admission and Anticipated Discharge Date Admission Date: August 02, 2024 Supervising Physician Co-Signing Physician Notes Attending Physician Supervision Note: I independently interviewed and examined the patient and verified the page history and physical, reviewed labs and image studies and agree with findings and care plan noted above. Improving. No new concerns. Not able to tolerate cpap. On examination, RRR, JVD +, decreased breath sounds at base, Abdominal wall and leg edema + Atrial flutter/Atrial fibrillation with RVR - cardiology consult - Cardioversion cancelled - MAG suggested clot in LA appendage. Continue metoprolol. Eliquis. LA appendage clot - Eliquis Acute HFmrEF - Mostly right sided. CMP likely from obesity Hypoventilation syndrome. Small ascites/probable cirrhosis vs fatty liver ds - likely from hepatic [place] estion d/t RHF -While diuresing - Will need to monitor preload dependence in setting of severe right heart dysfunction. Noted lower BP readings in 90s at times. -lasix to TID dose. -Neg 7.4 L -Renal fx stable. -Losartan vs Entresto based on cost affordability. Will also need SGLT2i. New diagnosis of DMII - SSI. Counseling ongoing for lifestyle management and supportive care. Would recommend metformin on discharge, though GLP-1/SGLT2i would have benefit. Suspected OHS/MARINO - outpatient sleep study, monitor for nocturnal hypoxia. -Not able to tolerate cpap here. Else see resident documentation as noted. Subjective Patient seen bedside this morning. States that he is feeling well today. Tried to use CPAP last night but was unsuccessful due to discomfort. Denies any shortness of breath, chest pain, or abdominal pain. Patient does state that he feels that his lower extremity edema is improving. Review of Systems Review of Systems: All systems reviewed & are unremarkable except as noted in Subjective Physical Exam Physical Exam: Constitutional: well-appearing, no acute distress, obese HEENT: NCAT, no conjunctival injection CV: regular rhythm, no murmur appreciated, extremities well-perfused, bilateral lower extremity edema Resp: CTABL, no wheezes/rales/rhonchi appreciated, no increased work of breathing GI: nontender, BS normoactive, ascites appreciated MSK: no gross deformities appreciated Skin: warm, dry, no rash appreciated Neuro: alert, oriented, no focal neurologic deficit appreciated Results & Data Results & Data Vital Signs (Past 12 Hours) Vital Signs Temp Pulse Pulse Resp BP BP Pulse Ox 08/07/24 03:09 37.3 C 107 H 20 114/85 94 08/06/24 22:25 37 C 68 19 132/95 89 L 08/06/24 22:04 98 H 08/06/24 21:00 08/06/24 19:31 36.8 C 20 137/96 90 O2 Del Method O2 Flow Rate 08/07/24 03:09 Nasal Cannula 2.5 08/06/24 22:25 Room Air 08/06/24 22:04 08/06/24 21:00 Nasal Cannula 2 08/06/24 19:31 Nasal Cannula 2 (2) Fluid overload Hypervolemia type: unspecified Qualified Code(s): E87.70 - Fluid overload, unspecified
[2024-08-07 07:17] LABS: Basophils # (auto) 0.04 K/uL (0.00-0.20); Basophils % (auto) 0.6 %; Eosinophils # (auto) 0.12 K/uL (0.00-0.50); Eosinophils % (auto) 1.9 %; Hematocrit (blood only) 46.6 % (42.0-52.0); Hemoglobin 14.6 g/dl (14.0-18.0); Immature Granulocytes # (auto) 0.02 K/uL (0.01-0.20); Immature Granulocytes % (auto) 0.3 %; Lymphocytes # (auto) 1.19 K/uL (1.20-3.40); Lymphocytes % (auto) 18.7 %; Mean Corpuscular Hemoglobin 28.7 pg (25.0-34.0); Mean Corpuscular Hgb Conc 31.3 g/dL (32.0-36.0); Mean Corpuscular Volume 91.7 fL (80.0-100.0); Monocytes # (auto) 0.76 K/uL (0.11-0.59); Monocytes % (auto) 11.9 %; Neutrophils # (auto) 4.25 K/uL (1.40-6.50); Neutrophils % (auto) 66.6 %; Platelet Count 157 K/uL (130-400); RDW Coefficient of Variation 15.1 % (11.5-14.5); RDW Standard Deviation 50.8 fL (36.4-46.3); Red Blood Count 5.08 M/uL (4.70-6.10); White Blood Count 6.38 K/ul (4.8-10.8)
[2024-08-07 07:45] LABS: Albumin Globulin Ratio 1.5 (0.9-2); Albumin Level 3.8 gm/dl (3.4-5.0); BUN Creatinine Ratio 19.8 (10-20); Bilirubin,Total 1.4 mg/dl (0.2-1.0); Calcium 9.4 mg/dl (8.6-10.3); Creatinine Clr Calc Pharmacy 141.7 ml/min; Globulin 2.5 gm/dl (2.5-4.0); Magnesium 2.2 mg/dl (1.7-2.4); Potassium 3.7 mmol/L (3.5-5.1); Total Protein 6.3 gm/dl (6.0-8.3)
[2024-08-07 20:53] VITALS: RESP 18
[2024-08-08 07:59] LABS: Basophils # (auto) 0.04 K/uL (0.00-0.20); Basophils % (auto) 0.6 %; Eosinophils # (auto) 0.15 K/uL (0.00-0.50); Eosinophils % (auto) 2.2 %; Hematocrit (blood only) 47.6 % (42.0-52.0); Hemoglobin 14.8 g/dl (14.0-18.0); Immature Granulocytes # (auto) 0.02 K/uL (0.01-0.20); Immature Granulocytes % (auto) 0.3 %; Lymphocytes # (auto) 1.48 K/uL (1.20-3.40); Lymphocytes % (auto) 22.1 %; Mean Corpuscular Hemoglobin 28.7 pg (25.0-34.0); Mean Corpuscular Hgb Conc 31.1 g/dL (32.0-36.0); Mean Corpuscular Volume 92.4 fL (80.0-100.0); Mean Platelet Volume 11.4 fL (9.4-12.4); Monocytes # (auto) 0.84 K/uL (0.11-0.59); Monocytes % (auto) 12.5 %; Neutrophils # (auto) 4.17 K/uL (1.40-6.50); Neutrophils % (auto) 62.3 %; Platelet Count 167 K/uL (130-400); RDW Coefficient of Variation 14.9 % (11.5-14.5); RDW Standard Deviation 51.6 fL (36.4-46.3); Red Blood Count 5.15 M/uL (4.70-6.10)
[2024-08-08 08:44] LABS: Albumin Globulin Ratio 1.6 (0.9-2); Albumin Level 3.9 gm/dl (3.4-5.0); BUN Creatinine Ratio 14.4 (10-20); Bilirubin,Total 1.6 mg/dl (0.2-1.0); Calcium 9.5 mg/dl (8.6-10.3); Creatinine Clr Calc Pharmacy 122.8 ml/min; Globulin 2.5 gm/dl (2.5-4.0); Total Protein 6.4 gm/dl (6.0-8.3)
--- NOTE | 2024-08-08 13:04 | Hospitalist Progress Note ---
Date of Service August 08, 2024 Assessment & Plan (1) Atrial flutter with rapid ventricular response: (2) Right ventricular failure: (3) Left atrial thrombus: (4) Fluid overload: (5) Diabetes: Plan #Atrial flutter/Atrial Fibrillation with RVR #Right ventricular failure #Left atrial thrombosis #Abdominal and Peripheral Edema -Nocturnal oxygen desating in the upper 80's-lower 90's; nighttime (08/08) arterial blood gas with oxygen saturation monitoring for confirmation of MARINO -Cardiology onboard: Echo - EF 40-45% and right sided systolic function severely reduced suggests cor pulmonale secondary to untreated MARINO; cardiac ablation outpatient recommended; follow-up with heart failure clinic -Cardioversion was called off (08/06) due 2 clot in the LA appendage; anticoagulation with apixaban and rate control with metoprolol -Empagliflozin mortality benefit for CHF and DM -CT abdomen/pelvis: Early cirrhosis vs. mild fatty liver; small ascites -Furosemide; continue furosemide outpatient; creatinine remains stable -Encouraged CPAP #Diabetes -HbA1C 7.1%; Blood glucose checks ACHS + insulin sliding scale -Prior to discharge, consider metformin, ACEi/ARBi, statin +/- GLP-1 agonist, and lifestyle management within patient agreement and financial abilities -Obesity likely associated underlying sleep apnea. May benefit from GLP-1 inhibitor. This can be discussed at outpatient follow-up. DVT prophylaxis: Apixaban Diet: Heart healthy, fluid restricted Disposition: PCU CODE STATUS: Full code Admission and Anticipated Discharge Date Admission Date: August 02, 2024 Supervising Physician Co-Signing Physician Notes I personally examined the patient and verified all page points of history and exam, discussed case, and agree with decision making with Dr Phillips and Catrachito Little MS4 feeling okay. No new complaints. Extensive discussionspatient expressed good understanding. Vitals noted, in general he is awake and alert pleasant no distress. HEENT normocephalic atraumatic mucous membranes moist. Breathing unlabored no accessory muscle use good effort. Skin without rashes pallor or icterus. Neuro without focal deficits. Strongly probable OHS/OSAovernight pulse ox/a.m. blood gas to try to qualify for trelogy device (provided that he takes the steps he needs to reinstate his insurance). Discussed how this is central to his a flutter and heart failureand treatment is essential. Expressed a good understanding of this. Atrial flutter/Atrial fibrillation with RVR - cardiology consult - Cardioversion cancelled - MAG suggested clot in LA appendage. For now, rate control/anticoagulation. Ablation in the near future once it is safe. Discussed treating sleep apnea to reduce risk of recurrence/make this easier to treat LA appendage clot - Eliquis Acute HFmrEF - hard to tell if he has some primary pulmonary hypertension or if this is all rate related from his a flutter, but currently does have findings consistent with cor pulmonale. Diurese, control/ablate a flutter, treat sleep apnea, followI would anticipate with treating all of the above, however this should hopefully improve. New diagnosis of DMII - Fortunately surprisingly mild, SSI. Counseling ongoing for lifestyle management and supportive care. Would recommend metformin on discharge, though GLP-1/SGLT2i would have benefit. otherwise as above Subjective Pedrito was seen this morning at bedside with his daughter. He states that he is tired and attributes this to a combination of not sleeping well (e.g., hospital bed) and being on a variety of medications after being on "none, including no aspirin". He is unsure if this is related to the increase in metoprolol. We discussed CPAP and Pedrito was okay with trialing it this night. Per the daughter, he would not likely tolerate a BIPAP given claustrophobia. Pedrito endorsed this. Also, wanting to set up a sleep study/confirm obstructive sleep apnea during this hospitalization. Otherwise he's "just staying the course" without shortness of breath or chest pain. No further questions, comments, or concerns. Review of Systems Review of Systems: Per HPI Physical Exam Physical Exam: Constitutional: Lying on his side on the bed; In no apparent distress; Acute Respiratory: Lung sounds are distant due to body habitus, otherwise clear to auscultation bilaterally in the upper and lower lung rust; Conversational without shortness of breath; Respiratory effort and rate appropriate for situation; No accessory respiratory muscle use Cardiovascular: Heart sounds are distant; S1 and S2 appreciated; Regular rate with irregular rhythm Abdomen: Normoactive bowel sounds; Moderate fullness to palpation; Cannot appreciate organomegaly due to body habitus Extremities: BLE pitting edema Results & Data Results & Data Vital Signs (Past 12 Hours) Vital Signs Temp Pulse Pulse Resp BP BP Pulse Ox 08/08/24 07:23 36.7 C 102 H 18 108/78 94 08/08/24 05:33 100 H 08/08/24 04:20 36.8 C 102 H 18 166/107 H 99 08/07/24 22:39 37.2 C 92 H 18 156/108 H 97 08/07/24 21:54 93 H 08/07/24 21:09 08/07/24 20:09 36.3 C L 100 H 18 150/101 H 97 O2 Del Method O2 Flow Rate 08/08/24 07:23 Nasal Cannula 2.5 08/08/24 05:33 08/08/24 04:20 Nasal Cannula 2.5 08/07/24 22:39 Nasal Cannula 2.5 08/07/24 21:54 08/07/24 21:09 Nasal Cannula 2 08/07/24 20:09 Nasal Cannula 2.5 (4) Fluid overload Hypervolemia type: unspecified Qualified Code(s): E87.70 - Fluid overload, unspecified
--- NOTE | 2024-08-08 17:58 | Billing Data ---
Date of Service August 08, 2024 Coding Level of Care Code 66301 SUB INP/OBS CARE MIN
[2024-08-09 06:23] LABS: Base Excess VBG 18.1 mEq/L; HCO3 VBG 46 mmol/L; PCO2 VBG 64 mmHg (38-50); PO2 VBG 53 mmHg; pH VBG 7.46 (7.36-7.41)
[2024-08-09 06:27] LABS: Basophils # (auto) 0.06 K/uL (0.00-0.20); Basophils % (auto) 0.8 %; Eosinophils # (auto) 0.14 K/uL (0.00-0.50); Eosinophils % (auto) 1.9 %; Hematocrit (blood only) 48.7 % (42.0-52.0); Hemoglobin 15.6 g/dl (14.0-18.0); Immature Granulocytes # (auto) 0.02 K/uL (0.01-0.20); Immature Granulocytes % (auto) 0.3 %; Lymphocytes # (auto) 1.45 K/uL (1.20-3.40); Lymphocytes % (auto) 20.1 %; Mean Corpuscular Volume 90.5 fL (80.0-100.0); Mean Platelet Volume 11.4 fL (9.4-12.4); Monocytes # (auto) 0.78 K/uL (0.11-0.59); Monocytes % (auto) 10.8 %; Neutrophils # (auto) 4.78 K/uL (1.40-6.50); Neutrophils % (auto) 66.1 %; Platelet Count 171 K/uL (130-400); RDW Coefficient of Variation 15.2 % (11.5-14.5); RDW Standard Deviation 49.6 fL (36.4-46.3); Red Blood Count 5.38 M/uL (4.70-6.10); White Blood Count 7.23 K/ul (4.8-10.8)
[2024-08-09 06:47] LABS: Albumin Globulin Ratio 1.5 (0.9-2); Albumin Level 4.1 gm/dl (3.4-5.0); BUN Creatinine Ratio 17.2 (10-20); Bilirubin,Total 1.6 mg/dl (0.2-1.0); Calcium 9.8 mg/dl (8.6-10.3); Creatinine Clr Calc Pharmacy 145.3 ml/min; Globulin 2.7 gm/dl (2.5-4.0); Potassium 3.9 mmol/L (3.5-5.1); Total Protein 6.8 gm/dl (6.0-8.3)
--- NOTE | 2024-08-09 10:03 | Hospitalist Progress Note ---
Date of Service August 09, 2024 Assessment & Plan (1) Atrial flutter with rapid ventricular response: (2) Fluid overload: (3) Diabetes: (4) Right ventricular failure: (5) Left atrial thrombus: Plan #Atrial flutter/Atrial Fibrillation with RVR #Abdominal and Peripheral Edema #Left atrial thrombosis #Right ventricular failure -TTE showed an EF of 40-45% with right ventricular systolic function severely reduced. -Cardioversion was called off (08/06) due 2 clot in the LA appendage; switched anticoagulation to Eliquis. -Empagliflozin added; Metoprolol increased from 50 to 75 mg PO BID -Cardiology onboard: Echo - EF 40-45% and right sided systolic function severely reduced suggests cor pulmonale secondary to untreated MARINO. Will need outpatient sleep study. -CT abdomen/pelvis: Early cirrhosis vs. mild fatty liver; small ascites -Furosemide 40 mg IV BID; will most likely need follow-up with heart failure clinic as well as p.o. Lasix. -Increase furosemide to 40 mg IV 3 times daily on 08/06. -Currently -9L+ I's and O's since admission. Creatinine has remained stable. -Encourage CPAP #Diabetes -HbA1C 7.1%; Blood glucose checks ACHS + insulin sliding scale -Prior to discharge, consider metformin, ACEi/ARBi, statin +/- GLP-1 agonist, and lifestyle management within patient agreement and financial abilities -Also patient with obesity most likely having underlying sleep apnea. May benefit from GLP-1 inhibitor. This can be discussed at outpatient follow-up. DVT prophylaxis: Apixaban Diet: Heart healthy, fluid restricted Disposition: PCU CODE STATUS: Full code Admission and Anticipated Discharge Date Admission Date: August 02, 2024 Subjective Patient seen and evaluated at bedside this morning. No acute events overnight. Nocturnal pulse ox completed. ABG was unsuccessful this am. VBG obtained. Review of Systems Review of Systems: reviewed, per HPI Physical Exam Physical Exam: Constitutional: well-appearing, no acute distress HEENT: NCAT, no conjunctival injection CV: well perfused, +LE edema Resp: no increased work of breathing GI: obese, nondistended MSK: no gross deformities appreciated Skin: warm, dry, no rash appreciated Neuro: alert, oriented, no focal neurologic deficit appreciated Results & Data Results & Data Vital Signs (Past 12 Hours) Vital Signs Temp Pulse Pulse Resp BP BP Pulse Ox 08/09/24 08:18 08/09/24 08:00 08/09/24 07:18 36.8 C 101 H 18 129/81 89 L 08/09/24 06:02 92 H 08/09/24 04:00 36.8 C 102 H 18 130/70 91 08/09/24 02:15 90 08/08/24 23:15 69 08/08/24 23:06 08/08/24 22:47 36.7 C 87 18 123/84 97 Pulse Ox O2 Del Method O2 Del Method O2 Del Method O2 Flow Rate 08/09/24 08:18 Room Air 08/09/24 08:00 Room Air 08/09/24 07:18 Room Air 08/09/24 06:02 93 Room Air 08/09/24 04:00 Room Air 08/09/24 02:15 89 L Room Air 08/08/24 23:15 95 Room Air 08/08/24 23:06 Room Air, Nasal Cannula 2.5 08/08/24 22:47 Room Air Resident Activity Tracking Resident Involvement: Resident Care Provided Care Provided: Adult Hospital Medicine (2) Fluid overload Hypervolemia type: unspecified Qualified Code(s): E87.70 - Fluid overload, unspecified
[2024-08-09 11:10] VITALS: BP 110/76; TEMP 98.1; O2SAT 90
[2024-08-09 15:11] VITALS: PULSE 59
--- NOTE | 2024-08-09 17:40 | Discharge Summary ---
Discharge Summary Date of Service August 09, 2024 Principal Dx & Hospital Course #1 = Principal Diagnosis (1) Atrial flutter with rapid ventricular response: (2) Right ventricular failure: (3) Left atrial thrombus: (4) Fluid overload: (5) Diabetes: Plan #Atrial flutter/Atrial Fibrillation with RVR #Right ventricular failure #Left atrial thrombosis #Diabetes came in and CHF with a flutter/RVRfound to have what appears likely to be MARINO/OHS as the driving factor for the atrial flutterand atrial flutter with RVR (plus or minus some degree of pulmonary hypertension from the OHS) was largely what led to the heart failure picture (left-sided moderately reduced EF as well as right-sided CHF)diuresed with about 30 pounds of fluid removed, feeling better and wanting to go home. The major conundrum was that his insurance had lapsed and apparently with 1 back payment he would have insurance coverage again; yet at the same time he was unable to take the steps necessary to reinstate his insurance coverage while still in the hospital. We discussed extensively (and reiterated discussions with his daughter) that many of his comorbidities could be improved if not put into remission with positive lifestyl e change (and discussed lifestyle change in practical detail) and built a "ideal" plan that entailed metoprolol succinate/Eliquis/eventual ablation for the A-flutter, auto titrating BiPAP such as Trelegy for his sleep apnea, Entresto/Jardiance/Lasix/lifestyle change for the CHF (with anticipation that over time his EF will likely improve), and lifestyle change plus Jardiance for the diabetescurrently because he is requesting to be discharged without insurance coverage, obviously a lot of this would be unfortunately cost prohibitiveso temporarily we are utilizing metoprolol tartrate and Eliquis (with coupon) for the A-flutter, unfortunately there is no real remedy for the sleep apnea without being able to get him some sort of pressure device so we recommended sleeping in an elevated angle and working on getting the pressure device IGOR, Lasix/lisinopril/lifestyle change for the CHF, and lifestyle change alone to hopefully be curative for the diabetes. Will need close outpatient follow-upDr. Jacqueline will be following him after discharge Notes For Next Care Provider Medication Changes From Visit see med rec Admission HPI Per Admitting Provider Stephon is a 59-year-old male with no prior medical history presents with leg swelling, abdominal swelling, shortness of breath. "Pedrito" reports 3 weeks ago he had bad chest congestion. Took Phoebe Logan from the pharmacy and felt a lot better except then had some constipation after. " Normally regular as rain." Had had increased constipation which was just started to improve but then started to develop edema. Leg and abdominal edema started to develop ~3 weeks ago. Has had some swelling in his RIGHT leg in the past. Swelling in the legs hasn't increased that much, tends to be worse in the evening. no pain in the calves. Shortness of breath started 3 weeks ago. Improved after initial chest congestion, but then staying the same overall in the last 2 weeks. Edema seems pretty stable over that time 'but stomach is so hard even ahrd to bend.' Abdomen is much more swollen than normal. No abdominal pain. No surface or deep pain. +Fevers and chills initially 'shaking' and cold at night, but none in the last week and a half. No sweats/chills in last 10 days No cough last 2 weeks. Has a slightly dry cough chronically. First week coughed up clear sputum no color. No sputum production last 10 days. No dysuria Last BM was this morning, brown no blood or melena. +orthopnea last 3 weeks Works construction and goes up stairs, no chest pain or ches tpressure. Short of breath last 3 weeks No primary care doctor currently Medical History: Reviewed Medications: Reviewed. Surgical History: Reviewed Family history: Reviewed. No FHX PR, FHX of DM diet controlled in father. +stroke in his father. Allergies: Reviewed. NKDA. Social History: No ETOH. Rare snuff use, not daily/regularly. Code Status: Full Code Updated Medication List Medication Instructions Recorded Confirmed Type apixaban 5 mg tablet (Eliquis) 5 mg PO BID #60 tabs 08/09/24 Rx furosemide 80 mg tablet 80 mg PO DAILY #30 tabs 08/09/24 Rx lisinopril 20 mg tablet 20 mg PO DAILY #30 tabs 08/09/24 Rx metoprolol tartrate 25 mg tablet 75 mg (3 x 25 mg) PO BID #60 tabs 08/09/24 Rx Hospital Stay Data Consultations 08/02/24 16:52 ED Decision to Admit Stat 08/02/24 23:13 Consult Cardiology Routine 08/04/24 11:06 Consult Anesthesiology Routine Procedures Performed Operation Date: 08/05/24 07:30 Actual Procedures p Echo Transesophageal - Nader Kevin MD s Echo Color Flow - Nader Kevin MD Diagnostic Imagining Performed 08/02/24 15:31 CT angio chest PE protocol Stat 08/03/24 08:58 CT Abd and Pelvis [CT abd pelvis IV con only] Urgent Pending Results Patient Have Any Pending Studies at Discharge: No Discharge Instructions Given to Patient (Per Discharging Provider) sleep apnea - The core of all of this is the sleep apnea. While people generally think of sleep apnea as mostly daytime fatigue issue, the main problems that happen from it are more because of the vacuum we create in our chest when we are sucking in against a closed airway. This creates stretch across our heart (in your case leading to the atrial flutterwhich in turn led to the congestive heart failure) and it also put stretch across the blood vessels in your lungs (right now it looks like you have elevated blood pressures in your lungsprobably from the sleep apnea stretching those blood vessels as wellalthough hopefully in time we might see that the elevated blood pressure in your lungs was just because of fluid backed up from the left ventricle). - Treating the sleep apnea is absolutely critical to getting you better/reclaiming your health. In the short-term it is to get you out of the cycle of worsening your cardiopulmonary problems by stretching heart muscle and lung blood vessels more; in the long-term it is critical because when people feel so fatigued from not sleeping it is almost impossible to make the positive eating/exercise changes to reclaim their health. - We have talked a lot about getting use to a nighttime pressure deviceit is absolutely critical. There is really no other good way to treat sleep apnea (there is the inspire devicebut it scares mean electrical stimulus device implanted in your neck that gets questionable outcomes just seems like a bad idea to be)although as we discussed, as you eat healthier/exercise more, and the weight starts to come off, the sleep apnea should at the very least to be easier to control (and as we discussed, I have seen 1 person truly cure their sleep apnea with lifestyle change/weight loss, so it is possible, if not unlikely). - If you get insurance coverage in the next 24-48 hours, let us know right awaythe overnight pulse ox/morning blood gas we checked today would still likely be valid to get a device covered by insurance. If not, we will have to almost certainly do a sleep studywhich we will set in motion to get it done as quickly as possible - in the meantime, as we discussed, the best we can recommend treating the sleep apnea until we get a device is having you sleep in an elevated positionhaving your head elevated 45 degrees or higher (such as with a wedge pillow and blocks under the headboard/head side bed posts to angle your bed up)this at least makes gravity a "glancing blow" and should help blunt the apnea events somebut obviously not fix it - once you have your device, get used to it during waking hours so that you are not only wearing it when you are trying to go to sleep. Like we discussed, wearing it while watching a movie/ballgame can help you get used to the feeling of it whenever you have other distracting influences. Similarly, as we discussed, if you have to turn the pressure down to get used to itrealize that that may not be enough to actually be treating the apnea, and so that is okay as a temporary "get used to it measure" but definitely would not be a long-term "something is better than nothing"remember the analogy if we have to lift a 200 pound bed, 195 pounds of force is "close but not actually doing anything" atrial flutter - the atrial flutter almost certainly happened because of the sleep apnea. When we have sleep apnea, during her apnea events her airway is shotbut we are trying to inhale against a closed airway. This creates a big vacuum in our chest, which then stretches the atrial muscle. The wiring in the atrial muscle will get stretched to where it is dysfunctional, but still worksthis is really what creates the electrical discharges but because the atrial flutter. - While treating the sleep apnea will not directly fix the atrial flutter, it will make it far easier to control, and make an ablation procedure far more likely to succeed. - when the atria are fluttering rather than parish, this allows for a stagnant pondin that stagnant pond unfortunately clots can formwhich is what happened with you. Those clots are a risk for for having a stroke, but once you are on a blood thinner that risk is almost 0. Blood thinners like Eliquis worked great at preventing strokes with atrial flutterbut obviously since you already have a clot we want to make sure that you do not even miss a dose. With that in mind, you will definitely want to continue to take the Eliquis twice a day, every day, unbroken. Right now we have a coupon for this, but if there are any beregans with insurance coverage and you will not be able to get Eliquis next month, you would need to let Dr Phillips know as early in the process as possible so that he could try to find samples/find another workaround/start you on Coumadin if we have no other options - the other problem that happens with atrial flutter is inappropriate heart racingbecause the atria are quivering rather than parish, they send is much as 100 signals a second telling the ventricles to contract. While your ventricles were not going at a heart rate of 600 beats a minute, atrial flutter will often race at 150 or higher for prolonged periods of timeit is quite likely that your heart racing for longer than you ever would have realized is what led to fatigue on your heart muscle which is what got it weaker. Right now we are sending you out on metoprolol tartrate (short acting metoprolol) 75 mg twice a dayif you still need the metoprolol once you have insurance coverage, ideally we would switch you to the long-acting (metoprolol succinate) at a comparable dose, simply because it works a bit better. - Once you have insurance coverage, having Dr. Kevin ablate the atrial flutter will likely, for all intents and purposes, fix the problem. You will probably still need to be on the Eliquis for a while (perhaps indefinitely) because of the clotbut he will be on to guide you on that after the procedure. congestive heart failure - I am not particularly fond of this term is a diagnosis, because it sounds so ominous. For you, the congestive heart failure is really more traffic jam of fluid which happened because your left ventricle got weaker (which was largely because of the atrial flutter probably racing longer than you ever would have guessed) - For now, the main way to "fix" the congestive heart failure is controlling the atrial flutter and treating the sleep apnea. In the meantime, we will also be "splinting" the congestive heart failure with furosemide (a diuretic to mei nue to pull fluid off) and lisinopril (a blood pressure medicine that opens up blood flow in your kidneys to reduce back pressure on your heart). Once you have insurance coverage, if your heart muscle has not already started to get stronger, we may adjust the lisinopril to Entresto down the roadbut as we discussed, controlling the atrial flutter/treating the sleep apnea/reclaiming your health with eating and exercise changes may be enough to improve this that we never have to fall back on the Entresto - because her kidneys retain fluid in line with how much sodium we see, I would definitely recommend trying to restrict how much sodium he taken. When our kidneys see a little bit of sodium they hold onto a little bit of water, when our kidneys see a lot of sodium they hold onto a lot of waterin that respect, if you are able to stay at less than 2000 mg of sodium in a day, and less than 500 mg of sodium and any individual meal, you will minimize how much fluid you are retaining in excess of what your body is already going to be trying to dothis will simply make life a lot easier for you with less fluid retention/swelling, and probably more quickly being able to reduce the dose of the Lasix diabetes - as we discussed, this is probably a diagnosis she will "fix by accident"given that your diabetes is surprisingly mild right now. - The main long-term problem we worry about with diabetes is that "high sugars clog arteries"meaning that the higher you are on, and the longer you run high, the more you are blocking off blood vessels you cannot get back. Fortunately, however, your A1c (marker of what your sugars have been doing over the last 3 months) is barely in that range at 7.1% (diabetes generally starts with an A1c of 6.5%, high sugars clog arteries starts generally above about 7%, but an A1c in the low sevens would basically be clogging artery so slowly that you would be working on a heart attack 20 years from now in that perspective) - because type 2 diabetes is predominantly caused by her diet and exercise habits, shifting towards fruits, vegetables, and lean sources of protein (and shifting away from simple/starchy/ready/potato/sugary carbs) and working towards a goal of 20-30 minutes of light cardiovascular exercise daily should essentially put your diabetes in remission - it would be helpful to get a glucometer so that you can check sugars after you eat and learn from your body as far as what foods spike your sugar higherif you are doing this, a 2-hour after eating sugar reading should be less than about 150, at the same time, as long as you are eating healthier and exercising more it would not be crazy to simply work on lifestyle changes and have an A1c repeated in October. - Fortunately right now we do not have to do any medications for this follow up -we'll want you following with Dr Phillips at [facility] - [address], --> as we discussed, right now since you're technically uninsured the "machine" that is [facility] will not likely schedule you - but as soon as you have coverage please call the office so you get set up (also the front office will often put you in with whoever is available for a convenient time - continuity is way more important - just be a bit stubborn that they get you in with Dr Phillips specifically) -we'll need to trend kidney / electrolyte numbers to help adjust the diuretics (and make sure you're tolerating everything OK) - ideally we'd want to get a basic metabolic panel (BMP) next week and then periodically thereafter -should things surprisingly be slow with insurance coverage don't "be a medical orphan" - if it seems like it's taking too long to get coverage please call [facility] as they will generally do a really good job when people don't have insurance - hopefully you won't need them, but figure they're the safety net if you do -We sent the prescriptions to [facility], because the Eliquis should be covered by the coupon anywhere; but the furosemide, lisinopril, and metoprolol should all be $4 at [facility] (and would likely be much more expensive elsewhere) Total Time Total Time Spent Total Time Spent (In Minutes): >30 Supervising Physician Co-Signing Physician Notes OHS/OSAovernight pulse ox/a.m. blood gas reflective of need for treatmentbut unfortunately still does not have insurance coverageand given that he feels that he will need to be discharged to be able to pursue insurance coverage further, we will have to leave this to the outpatient oralwhich will likely entail a sleep study. Patient/daughter aware. Atrial flutter/Atrial fibrillation with RVR - cardiology consult - Cardioversion cancelled - MAG suggested clot in LA appendage. For now, rate control/anticoagulation. Ablation in the near future once it is safe. Discussed treating sleep apnea to reduce risk of recurrence/make this easier to treat (Right now given that he is asking to go home without insurance coveragehas a coupon for Eliquis, we will send on short acting metoprolol as it is $4 at [facility] the long-term would anticipate ablation, and in between once he has insurance coverage would probably change the metoprolol to succina te). Rate is controlled, currently anticoagulated. LA appendage clot - Eliquis Acute HFmrEF - hard to tell if he has some primary pulmonary hypertension or if this is all rate related from his a flutter, but currently does have findings consistent with cor pulmonale. Diurese, control/ablate a flutter, treat sleep apnea, At discharge we will be reducing Lasix from 40 mg IV 3 times daily to 80 mg once daily, would recommend frequent (roughly weekly) basic metabolic panel follow-up for now) low-sodium diet, increase activity New diagnosis of DMII - Fortunately surprisingly mild, SSI. Counseling ongoing for lifestyle management and supportive care. suspect he could essentially put his diabetes in remission with lifestyle change faster than even improving any of his other diagnoses otherwise as above
--- NOTE | 2024-08-09 17:40 | Billing Data ---
Date of Service August 09, 2024 Coding Level of Care Code 36223 INP/OBS DISCH >30 MIN
== END 2024-08-09 15:30 | disposition home or self-care (01) | DRG 314 ==
LOC: ED 14:50 → 2S 18:45 → SUATTDRO 18:45 → 2S 21:25